=== PATIENT | female | born 1985 | race African-American/Black ===

== ENCOUNTER 2022-10-13 11:05 | Emergency (ER) | payer MEDICAID ==
[~2022-10-13] VITALS: Ht 177.8 cm; Wt 87.0 kg
[2022-10-13] MEDS ORDERED: FAMOTIDINE 20MG/2ML VIAL IV STA (15:17)
[2022-10-13] MEDS ORDERED: ONDANSETRON HCL 4MG/2ML INJ IV STA (15:17)
[2022-10-13] MEDS ORDERED: MORPHINE SULFATE 4 MG/ML CPJ (NOT FOR IM USE) IV STA (15:17)
[2022-10-13 15:21] LABS: BASOPHILS % 0.4 % (0.0-2.0); EOSINOPHILS % 0.4 % (0.0-5.0); HEMATOCRIT. 40.9 % (36.0-48.0); HEMOGLOBIN. 13.3 g/dL (12.0-16.0); LYMPHOCYTES % 32.5 % (20.0-50.0); MEAN CORPUSCULAR HEMOGLOBIN 24.8 pg (28.0-32.0); MEAN CORPUSCULAR VOLUME 76.4 fL (81.0-99.0); MEAN PLATELET VOLUME 9.5 fl (7.4-10.4); MONOCYTES % 13.5 % (2.0-8.0); NEUTROPHILS % 53.2 % (40.0-76.0); PLATELET 255 x1000/uL (130-400); RED BLOOD CELL COUNT 5.35 mill/uL (4.2-5.4); RED CELL DISTRIBUTION WIDTH 18.4 % (11.6-14.6)
[2022-10-13 15:23] LABS: CHLORIDE 98 mEq/L (98-107)
[2022-10-13] MEDS ORDERED: SODIUM CHLORIDE 0.9% 1,000 ML IV ONE (15:30)
[2022-10-13 15:32] LABS: ETHANOL BLOOD < 10 mg/dL
[2022-10-13] MEDS ORDERED: POTASSIUM CHLORIDE 20MEQ TABLET SR PO NR (15:45)
[2022-10-13 15:54] LABS: HCG SCREEN NEGATIVE
[2022-10-13 15:59] VITALS: BP 129/83
[2022-10-13 16:52] LABS: CLARITY URINE TURBID (CLEAR); COLOR URINE DARK YELLOW (YELLOW); KETONES URINE 1+ (NEGATIVE); LEUKOCYTE ESTERASE URINE 2+ (NEGATIVE); NITRITE URINE POSITIVE (NEGATIVE); OCCULT BLOOD URINE 3+ (NEGATIVE); PROTEIN URINE 3+ (NEGATIVE)
[2022-10-13] MEDS ORDERED: LEVOFLOXACIN 500MG PREMIX 100 ML IV ONE (17:00)
[2022-10-13 17:13] LABS: *BARBITURATES SCREEN URINE NEGATIVE (NEGATIVE); *BENZODIAZEPINES SCREEN URINE NEGATIVE (NEGATIVE); *COCAINE SCREEN URINE NEGATIVE (NEGATIVE); METHADONE URINE SCREEN NEGATIVE (NEGATIVE); OPIATES URINE SCREEN NEGATIVE (NEGATIVE); PHENCYCLIDINE URINE SCREEN NEGATIVE (NEGATIVE)
[2022-10-13 17:21] LABS: *AMPHETAMINES SCREEN URINE PRESUMTIVE POSITIVE (NEGATIVE); CANNABINOID URINE SCREEN PRESUMTIVE POSITIVE (NEGATIVE)
[2022-10-13] MEDS ORDERED: SULF1TAB48 MT (17:30)
[2022-10-13] MEDS ORDERED: ONDA4TAB50 MT (17:30)
[2022-10-13] MEDS ORDERED: IBUP-2028 MT (17:30)
== END 2022-10-13 18:45 | disposition home or self-care (01) ==
LOC: ER 11:05
DX: N12 Tubulo-interstitial nephritis, not specified as acute or chronic (principal); E87.6 Hypokalemia; F15.10 Other stimulant abuse, uncomplicated
CPT/HCPCS: 36415; 74176; 80053; 80305; 80320; 81003; 81025; 83690; 84703; 85025; 87077; 87086; 87186; 93005; 96361; 96365; 96375; 99285; J1956; J2270; J2405; J3490; J7030; G0480

== ENCOUNTER 2022-10-16 16:23 | Emergency (ER) | payer MEDICAID ==
[~2022-10-16] VITALS: Ht 175.3 cm; Wt 100.0 kg
[~2022-10-16 16:23] MED LIST: IBUP-2028 MT; ONDA4TAB50 MT; SULF1TAB48 MT
[2022-10-16] MEDS ORDERED: ONDANSETRON HCL 4MG/2ML INJ IM STA (16:49)
[2022-10-16] MEDS ORDERED: KETOROLAC 30MG/ML VIAL IM STA (16:49)
[2022-10-16 17:11] LABS: BASOPHILS % 0.5 % (0.0-2.0); EOSINOPHILS % 1.1 % (0.0-5.0); HEMOGLOBIN. 12.4 g/dL (12.0-16.0); LYMPHOCYTES % 40.8 % (20.0-50.0); MEAN CORPUSCULAR HEMOGLOBIN 24.7 pg (28.0-32.0); MEAN CORPUSCULAR VOLUME 75.8 fL (81.0-99.0); MONOCYTES % 7.6 % (2.0-8.0); PLATELET 275 x1000/uL (130-400); RED BLOOD CELL COUNT 5.01 mill/uL (4.2-5.4); RED CELL DISTRIBUTION WIDTH 17.3 % (11.6-14.6)
[2022-10-16 17:24] LABS: CHLORIDE 103 mEq/L (98-107)
[2022-10-16 17:49] VITALS: BP 149/97
[2022-10-16 17:50] LABS: CLARITY URINE CLOUDY (CLEAR); COLOR URINE DARK YELLOW (YELLOW); KETONES URINE 1+ (NEGATIVE); LEUKOCYTE ESTERASE URINE 3+ (NEGATIVE); NITRITE URINE NEGATIVE (NEGATIVE); OCCULT BLOOD URINE 1+ (NEGATIVE); PH URINE 6.5 (4.5-8.0); PROTEIN URINE 2+ (NEGATIVE); SPECIFIC GRAVITY URINE 1.029 (1.005-1.030)
[2022-10-16] MEDS ORDERED: CEFTRIAXONE SODIUM 1 G/VIAL IM NR (18:15)
[2022-10-16] MEDS ORDERED: LIDOCAINE HCL/PF 1% 10 MG/ML 5ML VIAL INFIL NR (18:15)
[2022-10-16] MEDS ORDERED: ONDA4TAB50 PO (18:22)
[2022-10-16] MEDS ORDERED: CIPR500T5 PO (18:22)
[2022-10-16] MEDS ORDERED: NAPR-681 PO (18:22)
[2022-10-21] MEDS ORDERED: ALBU6.7H3 INH (10:16)
== END 2022-10-16 18:55 | disposition home or self-care (01) ==
LOC: ER 16:23
DX: N10 Acute pyelonephritis (principal); F12.10 Cannabis abuse, uncomplicated; Z59.00 Homelessness unspecified; Z88.0 Allergy status to penicillin
CPT/HCPCS: 36415; 80053; 81003; 81025; 83690; 85025; 87086; 96372; 99284; J0696; J1885; J2405; J3490

== ENCOUNTER 2023-05-18 20:42 | Inpatient (IN) | payer MEDICAID ==
[~2023-05-18] VITALS: Ht 180.3 cm; Wt 59.0 kg
[~2023-05-18 20:42] MED LIST changes: +FOLI-43 MT; -IBUP-2028 MT; -ONDA4TAB50 MT; -SULF1TAB48 MT; +THIA50TA12 MT
[2023-05-18 20:44] VITALS: O2SAT 99
[2023-05-18 22:04] LABS: BASOPHILS % 0.3 % (0.0-2.0); EOSINOPHILS % 2.6 % (0.0-5.0); HEMATOCRIT. 22.6 % (36.0-48.0); HEMOGLOBIN. 7.1 g/dL (12.0-16.0); LYMPHOCYTES % 22.3 % (20.0-50.0); MEAN CORPUSCULAR HEMOGLOBIN 19.1 pg (28.0-32.0); MEAN CORPUSCULAR HGB CONC 31.3 g/dL (31.0-37.0); MEAN CORPUSCULAR VOLUME 61.2 fL (81.0-99.0); MEAN PLATELET VOLUME 7.4 fl (7.4-10.4); MONOCYTES % 6.9 % (2.0-8.0); NEUTROPHILS % 67.9 % (40.0-76.0); PLATELET 658 x1000/uL (130-400); RED BLOOD CELL COUNT 3.69 mill/uL (4.2-5.4); RED CELL DISTRIBUTION WIDTH 21.3 % (11.6-14.6); WHITE BLOOD COUNT 6.8 x1000/uL (4.5-11.0)
[2023-05-18 22:08] LABS: CHLORIDE 98 mEq/L (98-107); INDEX HEMOLYSI 1 (1-3); INDEX ICTERIC 1 (1-4); INDEX LIPEMIC 1 (1-3); POTASSIUM 3.8 mEq/L (3.5-5.1); SODIUM 137 mEq/L (136-145)
[2023-05-18 22:11] LABS: ADD RBC MORPHOLOGY YES; DIFFERENTIAL COMMENT 1
[2023-05-18 22:17] LABS: ALANINE AMINOTRANSFERASE 19 IU/L (13-61); ALBUMIN 2.9 g/dL (3.4-5.0); ASPARTATE AMINOTRANSFERASE 15 IU/L (15-37); BILIRUBIN TOTAL 0.2 mg/dL (0.1-1.0); CALCIUM 9.3 mg/dL (8.5-10.1); CARBON DIOXIDE 34 mEq/L (21-32); CREATININE 1.4 mg/dL (0.6-1.3); GLUCOSE 115 mg/dL (70-105); UREA NITROGEN BLOOD 12 mg/dL (7-21)
[2023-05-18 22:33] LABS: ANISOCYTOSIS 2+; HYPOCHROMASIA 2+; MICROCYTOSIS 3+; PLATELET ESTIMATE MARKEDLY INCREASED
[2023-05-18 22:34] LABS: OVALOCYTES 1+; TARGET CELLS 1+
[2023-05-18] MEDS ORDERED: MORPHINE SULFATE 4 MG/ML CPJ (NOT FOR IM USE) IV STA (23:29)
[2023-05-18] MEDS ORDERED: ONDANSETRON HCL 4MG/2ML INJ IV STA (23:29)
[2023-05-18] MEDS ORDERED: SODIUM CHLORIDE 0.9% 1,000 ML IV ONE (23:30)
[2023-05-19 00:14] LABS: HCG SCREEN NEGATIVE
[2023-05-19 00:20] LABS: CLARITY URINE TURBID (CLEAR); COLOR URINE YELLOW (YELLOW); GLUCOSE URINE NEGATIVE (NEGATIVE); KETONES URINE NEGATIVE (NEGATIVE); LEUKOCYTE ESTERASE URINE 2+ (NEGATIVE); NITRITE URINE NEGATIVE (NEGATIVE); OCCULT BLOOD URINE NEGATIVE (NEGATIVE); PROTEIN URINE 1+ (NEGATIVE); SPECIFIC GRAVITY URINE 1.016 (1.005-1.030); UROBILINOGEN URINE 0.2 E.U./dL (0.2-1.0)
[2023-05-19 00:38] LABS: *AMPHETAMINES SCREEN URINE NEGATIVE (NEGATIVE); *BARBITURATES SCREEN URINE NEGATIVE (NEGATIVE); *BENZODIAZEPINES SCREEN URINE NEGATIVE (NEGATIVE); *COCAINE SCREEN URINE NEGATIVE (NEGATIVE); ECSTASY MDMA SCREEN URINE NEGATIVE (NEGATIVE); METHADONE URINE SCREEN NEGATIVE (NEGATIVE); OPIATES URINE SCREEN NEGATIVE (NEGATIVE); PHENCYCLIDINE URINE SCREEN NEGATIVE (NEGATIVE)
[2023-05-19 00:41] LABS: CANNABINOID URINE SCREEN PRESUMTIVE POSITIVE (NEGATIVE)
[2023-05-19] MEDS ORDERED: LEVOFLOXACIN 750MG PREMIX 150 ML IV ONE (01:45)
[2023-05-19 05:20] VITALS: BP 122/75; PULSE 75; RESP 18; TEMP 97.7
[2023-05-19 05:38] LABS: SQUAMOUS EPITHELIAL CELL URINE 2+ /lpf (RARE/1+)
[2023-05-19 05:39] LABS: RBC URINE 0-2 /hpf (0-2)
[2023-05-19 05:45] LABS: BACTERIA URINE 1+
[2023-05-19 08:00] VITALS: BP 118/67; PULSE 78; RESP 18; TEMP 98.1
[2023-05-19] MEDS ORDERED: PNEUMOCOCCAL 23-VAL P-SAC VAC 0.5 ML IM ONE (09:00)
[2023-05-19] MEDS ORDERED: MORPHINE SULFATE 2 MG/ML CPJ (NOT FOR IM USE) IV PRN (09:45)
[2023-05-19] MEDS ORDERED: NALOXONE HCL 0.4MG/ML VIAL IV PRN ×2 (10:00→11:15)
[2023-05-19 12:00] VITALS: BP 138/70; PULSE 80; RESP 17; TEMP 97.5
[2023-05-19] MEDS ORDERED: DEXT 5%/0.9% NACL 1,000 ML IV SCH (13:00)
[2023-05-19 15:26] LABS: HEPATITIS B SURFACE ANTIGEN NEGATIVE
[2023-05-19 15:54] LABS: HEPATITIS C VIR.AB 0.16 INDEXVAL (0.00-0.80)
[2023-05-19 16:00] VITALS: BP 118/68; PULSE 78; RESP 18; TEMP 96.7
== END 2023-05-19 17:50 | disposition left against medical advice (07) | DRG 282 ==
LOC: ER 20:42 → MICUSO 05-19 01:54 → EDBEDREQ 05-19 01:59 → 6WST 05-19 05:30
PROVIDERS: ADMIT Internal Medicine; ATTEND Internal Medicine
PROC: 3E0234Z Introduction of Serum, Toxoid and Vaccine into Muscle, Percutaneous Approach (ICD-10-PCS; principal; 2023-05-19)
DX: K85.90 Acute pancreatitis without necrosis or infection, unspecified (principal); N17.9 Acute kidney failure, unspecified; F10.20 Alcohol dependence, uncomplicated; D50.8 Other iron deficiency anemias; D75.839 Thrombocytosis, unspecified; F12.10 Cannabis abuse, uncomplicated; F19.10 Other psychoactive substance abuse, uncomplicated; F31.9 Bipolar disorder, unspecified; Z59.00 Homelessness unspecified; J45.909 Unspecified asthma, uncomplicated; N39.0 Urinary tract infection, site not specified; Z90.49 Acquired absence of other specified parts of digestive tract
CPT/HCPCS: 36415; 71045; 74176; 80053; 80305; 81003; 84703; 85025; 86803; 87340; 90732; 93005; 99285; J1956; J2270; J2405; J7030

== ENCOUNTER 2023-07-02 09:30 | Emergency (ER) | payer MEDICAID ==
[~2023-07-02] VITALS: Ht 167.6 cm; Wt 52.0 kg
[~2023-07-02 09:30] MED LIST changes: +ONDA4TAB50 MT; +TOPUD MT
[2023-07-02 09:32] VITALS: O2SAT 100
[2023-07-02] MEDS ORDERED: ONDANSETRON HCL 4MG/2ML INJ IV STA (09:33)
[2023-07-02] MEDS ORDERED: MORPHINE SULFATE 4 MG/ML CPJ (NOT FOR IM USE) IV STA (09:33)
[2023-07-02] MEDS ORDERED: SODIUM CHLORIDE 0.9% 1,000 ML IV ONE (09:45)
[2023-07-02 10:44] LABS: BASOPHILS % 0.6 % (0.0-2.0); EOSINOPHILS % 0.7 % (0.0-5.0); HEMATOCRIT. 34.3 % (36.0-48.0); HEMOGLOBIN. 10.5 g/dL (12.0-16.0); LYMPHOCYTES % 16.8 % (20.0-50.0); MEAN CORPUSCULAR HEMOGLOBIN 21.6 pg (28.0-32.0); MEAN CORPUSCULAR HGB CONC 30.7 g/dL (31.0-37.0); MEAN CORPUSCULAR VOLUME 70.2 fL (81.0-99.0); MEAN PLATELET VOLUME 8.8 fl (7.4-10.4); MONOCYTES % 4.3 % (2.0-8.0); NEUTROPHILS % 77.6 % (40.0-76.0); PLATELET 377 x1000/uL (130-400); RED BLOOD CELL COUNT 4.89 mill/uL (4.2-5.4); RED CELL DISTRIBUTION WIDTH 26.8 % (11.6-14.6)
[2023-07-02 10:45] LABS: ADD RBC MORPHOLOGY YES; DIFFERENTIAL COMMENT 1
[2023-07-02 10:46] LABS: CLARITY URINE TURBID (CLEAR); COLOR URINE DARK YELLOW (YELLOW); GLUCOSE URINE NEGATIVE (NEGATIVE); KETONES URINE TRACE (NEGATIVE); LEUKOCYTE ESTERASE URINE NEGATIVE (NEGATIVE); NITRITE URINE NEGATIVE (NEGATIVE); OCCULT BLOOD URINE NEGATIVE (NEGATIVE); PH URINE 5.5 (4.5-8.0); PROTEIN URINE 1+ (NEGATIVE); SPECIFIC GRAVITY URINE 1.027 (1.005-1.030)
[2023-07-02 10:53] LABS: PROTHROMBIN TIME 10.5 sec (9.6-11.0)
[2023-07-02 10:58] LABS: CHLORIDE 105 mEq/L (98-107); INDEX HEMOLYSI 1 (1-3); INDEX ICTERIC 1 (1-4); INDEX LIPEMIC 1 (1-3); POTASSIUM 3.7 mEq/L (3.5-5.1); SODIUM 134 mEq/L (136-145)
[2023-07-02 11:05] LABS: ALANINE AMINOTRANSFERASE 22 IU/L (13-61); ALBUMIN 3.5 g/dL (3.4-5.0); ASPARTATE AMINOTRANSFERASE 16 IU/L (15-37); BILIRUBIN TOTAL 0.4 mg/dL (0.1-1.0); CALCIUM 9.3 mg/dL (8.5-10.1); CARBON DIOXIDE 28 mEq/L (21-32); CREATININE 0.7 mg/dL (0.6-1.3); ETHANOL BLOOD < 10 mg/dL (<10); GLUCOSE 96 mg/dL (70-105); PROTEIN TOTAL 8.5 g/dL (6.0-8.3); UREA NITROGEN BLOOD 8 mg/dL (7-21)
[2023-07-02 11:06] LABS: BACTERIA URINE 3+; SQUAMOUS EPITHELIAL CELL URINE 3+ /lpf (RARE/1+)
[2023-07-02 11:08] LABS: WBC URINE 0-2 /hpf (0-2)
[2023-07-02 11:09] LABS: RBC URINE NONE SEEN /hpf (0-2)
[2023-07-02 11:19] LABS: ANISOCYTOSIS 4+; PLATELET ESTIMATE NORMAL
[2023-07-02 11:20] LABS: HYPOCHROMASIA 1+; MICROCYTOSIS 2+
[2023-07-02 11:31] LABS: *BARBITURATES SCREEN URINE NEGATIVE (NEGATIVE); *BENZODIAZEPINES SCREEN URINE NEGATIVE (NEGATIVE); *COCAINE SCREEN URINE NEGATIVE (NEGATIVE); METHADONE URINE SCREEN NEGATIVE (NEGATIVE); OPIATES URINE SCREEN NEGATIVE (NEGATIVE); PHENCYCLIDINE URINE SCREEN NEGATIVE (NEGATIVE)
[2023-07-02 12:21] LABS: *AMPHETAMINES SCREEN URINE PRESUMTIVE POSITIVE (NEGATIVE); CANNABINOID URINE SCREEN PRESUMTIVE POSITIVE (NEGATIVE); ECSTASY MDMA SCREEN URINE CONF.TEST INDICATED (NEGATIVE)
[2023-07-02 12:49] VITALS: BP 119/94; PULSE 61; RESP 16; TEMP 97.6
== END 2023-07-02 12:51 | disposition home or self-care (01) ==
LOC: ER 09:30
DX: F15.10 Other stimulant abuse, uncomplicated (principal); F12.10 Cannabis abuse, uncomplicated; R10.9 Unspecified abdominal pain; F16.10 Hallucinogen abuse, uncomplicated; J45.909 Unspecified asthma, uncomplicated; Z88.0 Allergy status to penicillin; Z98.890 Other specified postprocedural states
CPT/HCPCS: 80053; 80305; 81003; 81025; 80320; 83605; 83690; 85025; 85610; 86850; 86900; 86901; 36415; 71045; 74176; 93005; 96361; 96374; 96375; 99285; J2405; J2270; J7030; Z7610 ×3; G0480

== ENCOUNTER 2023-10-13 17:06 | Emergency (ER) | payer MEDICAID ==
[~2023-10-13] VITALS: Ht 177.8 cm; Wt 73.0 kg
[2023-10-13 17:10] VITALS: O2SAT 97
[2023-10-13 20:47] LABS: BASOPHILS % 0.3 % (0.0-2.0); DIFFERENTIAL COMMENT 0; EOSINOPHILS % 1.1 % (0.0-5.0); HEMOGLOBIN. 10.5 g/dL (12.0-16.0); LYMPHOCYTES % 33.5 % (20.0-50.0); MEAN CORPUSCULAR HEMOGLOBIN 22.3 pg (28.0-32.0); MEAN CORPUSCULAR HGB CONC 30.8 g/dL (31.0-37.0); MEAN CORPUSCULAR VOLUME 72.4 fL (81.0-99.0); MEAN PLATELET VOLUME 8.4 fl (7.4-10.4); MONOCYTES % 10.7 % (2.0-8.0); NEUTROPHILS % 54.4 % (40.0-76.0); PLATELET 254 x1000/uL (130-400); WHITE BLOOD COUNT 4.3 x1000/uL (4.5-11.0)
[2023-10-13 21:05] LABS: ALANINE AMINOTRANSFERASE 14 IU/L (10-49); ALBUMIN 3.9 g/dL (3.2-4.8); ASPARTATE AMINOTRANSFERASE 24 IU/L (<34); BILIRUBIN TOTAL 0.3 mg/dL (0.1-1.0); CALCIUM 9.3 mg/dL (8.7-10.4); CARBON DIOXIDE 28 mEq/L (21-32); CHLORIDE 102 mEq/L (98-107); CREATININE 0.8 mg/dL (0.6-1.0); GLUCOSE 86 mg/dL (70-105); POTASSIUM 3.9 mEq/L (3.5-5.1); PROTEIN TOTAL 6.9 g/dL (6.0-8.3); SODIUM 138 mEq/L (136-145); UREA NITROGEN BLOOD 7 mg/dL (9-23)
[2023-10-13 21:07] LABS: HCG SCREEN NEGATIVE
[2023-10-13] MEDS ORDERED: KETOROLAC 30MG/ML VIAL IM ONE (23:30)
[2023-10-13] MEDS ORDERED: HALOPERIDOL LACTATE 5MG/ML VIAL IM ONE (23:30)
[2023-10-13] MEDS ORDERED: ONDANSETRON 4MG ODT PO STA (23:31)
[2023-10-13] MEDS ORDERED: MAGNESIUM/ALUMINUM HYDROXIDE/SIMETHICONE 30ML UDC PO STA (23:31)
[2023-10-13] MEDS ORDERED: DICYCLOMINE 10 MG/5 ML ORAL SYR PO STA (23:31)
[2023-10-14] MEDS ORDERED: FAMO-135 MT (00:18)
[2023-10-14 00:56] VITALS: BP 156/84; PULSE 60; RESP 18; TEMP 98.3
== END 2023-10-14 01:06 | disposition home or self-care (01) ==
LOC: ER 17:06
DX: K29.70 Gastritis, unspecified, without bleeding (principal); R11.10 Vomiting, unspecified; J45.909 Unspecified asthma, uncomplicated; I10 Essential (primary) hypertension; D64.9 Anemia, unspecified; F12.90 Cannabis use, unspecified, uncomplicated; F15.90 Other stimulant use, unspecified, uncomplicated
CPT/HCPCS: 99284; 80053; 84703; 83690; 85025; 36415; 96372; Q0162; J1630; J1885

== ENCOUNTER 2023-10-16 09:06 | Emergency (ER) | payer MEDICAID ==
[~2023-10-16] VITALS: Ht 160 cm; Wt 70.0 kg
[~2023-10-16 09:06] MED LIST changes: +FAMO-135 MT
[2023-10-16 09:09] VITALS: TEMP 98.5; O2SAT 100
[2023-10-16] MEDS ORDERED: DICYCLOMINE 10 MG/5 ML ORAL SYR PO STA (09:17)
[2023-10-16] MEDS ORDERED: MAGNESIUM/ALUMINUM HYDROXIDE/SIMETHICONE 30ML UDC PO STA (09:17)
[2023-10-16] MEDS ORDERED: FAMOTIDINE 20MG TABLET PO ONE (09:30)
[2023-10-16 09:48] LABS: BASOPHILS % 0.7 % (0.0-2.0); DIFFERENTIAL COMMENT 0; EOSINOPHILS % 0.5 % (0.0-5.0); HEMATOCRIT. 38.3 % (36.0-48.0); HEMOGLOBIN. 11.8 g/dL (12.0-16.0); LYMPHOCYTES % 28.4 % (20.0-50.0); MEAN CORPUSCULAR HEMOGLOBIN 22.3 pg (28.0-32.0); MEAN CORPUSCULAR HGB CONC 30.8 g/dL (31.0-37.0); MEAN CORPUSCULAR VOLUME 72.5 fL (81.0-99.0); MEAN PLATELET VOLUME 8.8 fl (7.4-10.4); MONOCYTES % 7.5 % (2.0-8.0); NEUTROPHILS % 62.9 % (40.0-76.0); PLATELET 318 x1000/uL (130-400); RED BLOOD CELL COUNT 5.28 mill/uL (4.2-5.4); RED CELL DISTRIBUTION WIDTH 19.2 % (11.6-14.6); WHITE BLOOD COUNT 4.1 x1000/uL (4.5-11.0)
[2023-10-16 10:03] LABS: ALANINE AMINOTRANSFERASE 13 IU/L (10-49); ALBUMIN 3.8 g/dL (3.2-4.8); ASPARTATE AMINOTRANSFERASE 17 IU/L (<34); BILIRUBIN TOTAL 0.4 mg/dL (0.1-1.0); CARBON DIOXIDE 26 mEq/L (21-32); CHLORIDE 102 mEq/L (98-107); CREATININE 0.9 mg/dL (0.6-1.0); GLUCOSE 120 mg/dL (70-105); POTASSIUM 4.4 mEq/L (3.5-5.1); PROTEIN TOTAL 7.8 g/dL (6.0-8.3); SODIUM 134 mEq/L (136-145); UREA NITROGEN BLOOD 11 mg/dL (9-23)
[2023-10-16 10:04] LABS: ETHANOL BLOOD < 10 mg/dL (<10)
[2023-10-16] MEDS ORDERED: KETOROLAC 30MG/ML VIAL IV STA (11:04)
[2023-10-16] MEDS ORDERED: HALOPERIDOL LACTATE 5MG/ML VIAL IM ONE (11:15)
[2023-10-16] MEDS ORDERED: KETOROLAC 30MG/ML VIAL IV NR (12:15)
[2023-10-16] MEDS ORDERED: HALOPERIDOL LACTATE 5MG/ML VIAL IM NR (12:15)
[2023-10-16] MEDS ORDERED: MAGNESIUM/ALUMINUM HYDROXIDE/SIMETHICONE 30ML UDC PO NR (12:15)
[2023-10-16] MEDS ORDERED: FAMOTIDINE 20MG TABLET PO NR (12:15)
[2023-10-16 12:26] VITALS: BP 157/76; PULSE 78; RESP 16
[2023-10-16 13:51] LABS: HCG SCREEN NEGATIVE
== END 2023-10-16 14:18 | disposition home or self-care (01) ==
LOC: ER 09:06
DX: R11.10 Vomiting, unspecified (principal); F12.10 Cannabis abuse, uncomplicated; F15.10 Other stimulant abuse, uncomplicated; I10 Essential (primary) hypertension; J45.909 Unspecified asthma, uncomplicated; Z88.0 Allergy status to penicillin; Z98.890 Other specified postprocedural states
CPT/HCPCS: 80053; 80320; 84703; 83690; 85025; 36415; 96372; 96374; 99283; J1630; J1885; G0480

== ENCOUNTER 2023-10-21 13:18 | Emergency (ER) | payer MEDICAID ==
[~2023-10-21] VITALS: Ht 177.8 cm; Wt 61.0 kg
[2023-10-21 13:34] VITALS: BP 158/90; PULSE 90; RESP 18; O2SAT 96
[2023-10-21] MEDS ORDERED: ONDANSETRON 4MG ODT PO NR (15:49)
[2023-10-21] MEDS ORDERED: MAGNESIUM/ALUMINUM HYDROXIDE/SIMETHICONE 30ML UDC PO NR (15:49)
[2023-10-21] MEDS ORDERED: ONDANSETRON 4MG ODT PO STA (15:49)
[2023-10-21] MEDS ORDERED: DICYCLOMINE 10 MG/5 ML ORAL SYR PO STA (15:49)
[2023-10-21] MEDS ORDERED: DICYCLOMINE HCL 10MG CAPSULE PO NR (15:49)
[2023-10-21] MEDS ORDERED: MAGNESIUM/ALUMINUM HYDROXIDE/SIMETHICONE 30ML UDC PO STA (15:49)
[2023-10-21] MEDS ORDERED: HALOPERIDOL LACTATE 5MG/ML VIAL IM ONE (16:00)
[2023-10-21] MEDS ORDERED: HALOPERIDOL LACTATE 5MG/ML VIAL IM NR (16:00)
[2023-10-21 16:40] LABS: BASOPHILS % 0.7 % (0.0-2.0); DIFFERENTIAL COMMENT 0; EOSINOPHILS % 0.7 % (0.0-5.0); HEMATOCRIT. 35.5 % (36.0-48.0); HEMOGLOBIN. 11.2 g/dL (12.0-16.0); LYMPHOCYTES % 24.8 % (20.0-50.0); MEAN CORPUSCULAR HGB CONC 31.6 g/dL (31.0-37.0); MEAN CORPUSCULAR VOLUME 72.6 fL (81.0-99.0); MONOCYTES % 7.1 % (2.0-8.0); NEUTROPHILS % 66.7 % (40.0-76.0); PLATELET 392 x1000/uL (130-400); RED BLOOD CELL COUNT 4.89 mill/uL (4.2-5.4); RED CELL DISTRIBUTION WIDTH 19.5 % (11.6-14.6); WHITE BLOOD COUNT 4.4 x1000/uL (4.5-11.0)
[2023-10-21 16:58] LABS: ALANINE AMINOTRANSFERASE 11 IU/L (10-49); ALBUMIN 4.1 g/dL (3.2-4.8); ASPARTATE AMINOTRANSFERASE 18 IU/L (<34); BILIRUBIN TOTAL 0.4 mg/dL (0.1-1.0); CALCIUM 9.8 mg/dL (8.7-10.4); CARBON DIOXIDE 31 mEq/L (21-32); CHLORIDE 102 mEq/L (98-107); CREATININE 0.9 mg/dL (0.6-1.0); GLUCOSE 108 mg/dL (70-105); POTASSIUM 4.5 mEq/L (3.5-5.1); PROTEIN TOTAL 8.3 g/dL (6.0-8.3); SODIUM 137 mEq/L (136-145); UREA NITROGEN BLOOD 12 mg/dL (9-23)
[2023-10-21 17:02] LABS: ETHANOL BLOOD < 10 mg/dL (<10)
[2023-10-21 18:24] VITALS: TEMP 97.2
[2023-10-21] MEDS ORDERED: ACETAMINOPHEN 325MG TABLET PO STA (18:24)
[2023-10-21] MEDS ORDERED: ACETAMINOPHEN 325MG TABLET PO NR (18:24)
[2023-10-21 21:44] LABS: *AMPHETAMINES SCREEN URINE NEGATIVE (NEGATIVE); *BARBITURATES SCREEN URINE NEGATIVE (NEGATIVE); *BENZODIAZEPINES SCREEN URINE NEGATIVE (NEGATIVE); *COCAINE SCREEN URINE NEGATIVE (NEGATIVE); ECSTASY MDMA SCREEN URINE NEGATIVE (NEGATIVE); METHADONE URINE SCREEN Neg (NEGATIVE); OPIATES URINE SCREEN NEGATIVE (NEGATIVE); PHENCYCLIDINE URINE SCREEN NEGATIVE (NEGATIVE)
[2023-10-21] MEDS ORDERED: ACET-2708 MT (22:34)
== END 2023-10-22 00:04 | disposition home or self-care (01) ==
LOC: ER 13:55
DX: G89.29 Other chronic pain (principal); R10.9 Unspecified abdominal pain; F15.10 Other stimulant abuse, uncomplicated; F12.90 Cannabis use, unspecified, uncomplicated; J45.909 Unspecified asthma, uncomplicated; I10 Essential (primary) hypertension; D64.9 Anemia, unspecified; Z88.0 Allergy status to penicillin
CPT/HCPCS: 80053; 80305; 80320; 83690; 85025; 36415; 71045; 99284; Q0162; G0480

== ENCOUNTER 2024-06-15 19:43 | Emergency (ER) | payer MEDICAID ==
[~2024-06-15] VITALS: Ht 175.3 cm; Wt 68.0 kg
[~2024-06-15 19:43] MED LIST changes: +ACET-2708 MT; -FAMO-135 MT; +FAMO20TA8 MT; -ONDA4TAB50 MT; +SUCR1TAB MT
[2024-06-15 19:55] VITALS: O2SAT 98
[2024-06-15] MEDS: ACETAMINOPHEN 1000MG/100ML 100 ML IV ONE (21:35)
[2024-06-15] MEDS: FAMOTIDINE 20MG/2ML VIAL IV ONE (21:35)
[2024-06-15] MEDS: SODIUM CHLORIDE 0.9% 1,000 ML IV ONE (21:35)
[2024-06-15] MEDS: ONDANSETRON HCL 4MG/2ML INJ IV ONE (21:35)
[2024-06-15] MEDS: DICYCLOMINE HCL 10MG/ML 2ML VIAL IM ONE (21:35)
[2024-06-15 21:42] LABS: BASOPHILS % 0.4 % (0.0-2.0); DIFFERENTIAL COMMENT 0; EOSINOPHILS % 0.9 % (0.0-5.0); HEMATOCRIT. 39.2 % (36.0-48.0); HEMOGLOBIN. 12.3 g/dL (12.0-16.0); LYMPHOCYTES % 35.6 % (20.0-50.0); MEAN CORPUSCULAR HEMOGLOBIN 25.1 pg (28.0-32.0); MEAN CORPUSCULAR HGB CONC 31.5 g/dL (31.0-37.0); MEAN CORPUSCULAR VOLUME 79.6 fL (81.0-99.0); MEAN PLATELET VOLUME 8.4 fl (7.4-10.4); MONOCYTES % 5.8 % (2.0-8.0); NEUTROPHILS % 57.3 % (40.0-76.0); PLATELET 306 x1000/uL (130-400); RED BLOOD CELL COUNT 4.92 mill/uL (4.2-5.4); RED CELL DISTRIBUTION WIDTH 18.2 % (11.6-14.6); WHITE BLOOD COUNT 3.3 x1000/uL (4.5-11.0)
[2024-06-15 21:47] LABS: CHLORIDE 101 mEq/L (98-107); POTASSIUM 3.8 mEq/L (3.5-5.1); SODIUM 136 mEq/L (136-145)
[2024-06-15 21:48] LABS: CALCIUM 9.6 mg/dL (8.7-10.4); CARBON DIOXIDE 31 mEq/L (21-32)
[2024-06-15 21:50] LABS: HCG SCREEN NEGATIVE
[2024-06-15 21:53] LABS: CREATININE 1.2 mg/dL (0.6-1.0); GLUCOSE 102 mg/dL (70-105); UREA NITROGEN BLOOD 12 mg/dL (9-23)
[2024-06-15 21:54] LABS: TROPONIN I HIGH SENSITIVITY 5 ng/L (3.0-34)
[2024-06-15 21:55] LABS: ALANINE AMINOTRANSFERASE 17 IU/L (10-49); ALBUMIN 4.4 g/dL (3.2-4.8); ASPARTATE AMINOTRANSFERASE 22 IU/L (<34); BILIRUBIN TOTAL 0.3 mg/dL (0.1-1.0)
[2024-06-15 21:56] LABS: BILIRUBIN DIRECT < 0.1 mg/dL (<=3.0); PROTEIN TOTAL 7.9 g/dL (6.0-8.3)
[2024-06-15] MEDS ORDERED: FAMO20TA8 MT (22:23)
[2024-06-15] MEDS ORDERED: ONDA4TAB50 MT (22:30)
[2024-06-15 22:59] VITALS: TEMP 36.78072
[2024-06-15 23:55] VITALS: O2SAT 99
[2024-06-15 23:56] VITALS: BP 179/99; PULSE 63; RESP 16
[2024-06-15] MEDS: MORPHINE SULFATE 2 MG/ML INJ (NOT FOR IM USE) IV NR (23:56)
== END 2024-06-16 00:37 | disposition home or self-care (01) ==
LOC: ER 19:43
DX: R11.2 Nausea with vomiting, unspecified (principal); F15.10 Other stimulant abuse, uncomplicated; F12.10 Cannabis abuse, uncomplicated; I10 Essential (primary) hypertension; J45.909 Unspecified asthma, uncomplicated; Z88.0 Allergy status to penicillin; Z98.890 Other specified postprocedural states
CPT/HCPCS: 80076; 80048; 84703; 83690; 85025; 84484; 36415; 96365; 96366; 96372; 96375; 99284; J0500; J3490; J2405; J2270; J7030; Z7610 ×3; J0131

== ENCOUNTER 2024-12-11 13:01 | Emergency (ER) | payer MEDICAID, OTHER ==
[~2024-12-11] VITALS: Ht 162.6 cm; Wt 50.0 kg
[~2024-12-11 13:01] MED LIST changes: +FERR325T6 MT; +ONDA4TAB50 MT; +PANT40TA51 MT
[2024-12-11 13:02] VITALS: O2SAT 99
[2024-12-11 13:56] LABS: BASOPHILS % 0.5 % (0.0-2.0); DIFFERENTIAL COMMENT 0; EOSINOPHILS % 0.4 % (0.0-5.0); HEMATOCRIT. 32.1 % (36.0-48.0); HEMOGLOBIN. 10.3 g/dL (12.0-16.0); LYMPHOCYTES % 17.2 % (20.0-50.0); MEAN CORPUSCULAR HEMOGLOBIN 24.5 pg (28.0-32.0); MEAN CORPUSCULAR HGB CONC 31.9 g/dL (31.0-37.0); MEAN CORPUSCULAR VOLUME 76.7 fL (81.0-99.0); MEAN PLATELET VOLUME 8.3 fl (7.4-10.4); MONOCYTES % 2.7 % (2.0-8.0); NEUTROPHILS % 79.2 % (40.0-76.0); PLATELET 569 x1000/uL (130-400); RED BLOOD CELL COUNT 4.19 mill/uL (4.2-5.4); RED CELL DISTRIBUTION WIDTH 17.1 % (11.6-14.6); WHITE BLOOD COUNT 6.6 x1000/uL (4.5-11.0)
[2024-12-11] MEDS: ONDANSETRON 4MG ODT PO STA (13:58)
[2024-12-11] MEDS: ACETAMINOPHEN 325MG TABLET PO STA (13:58)
[2024-12-11 14:00] LABS: CARBON DIOXIDE 30 mEq/L (21-32); CHLORIDE 96 mEq/L (98-107); SODIUM 138 mEq/L (136-145)
[2024-12-11 14:01] LABS: CALCIUM 10.5 mg/dL (8.7-10.4)
[2024-12-11 14:06] LABS: CREATININE 1.3 mg/dL (0.6-1.0); GLUCOSE 119 mg/dL (70-105); UREA NITROGEN BLOOD 22 mg/dL (9-23)
[2024-12-11 14:07] LABS: ALANINE AMINOTRANSFERASE 9 IU/L (10-49); ALBUMIN 4.9 g/dL (3.2-4.8); ASPARTATE AMINOTRANSFERASE 17 IU/L (<34)
[2024-12-11 14:08] LABS: BILIRUBIN TOTAL < 0.2 mg/dL (0.1-1.0); ETHANOL BLOOD < 10 mg/dL (<10)
[2024-12-11 14:13] LABS: HCG SCREEN NEGATIVE
[2024-12-11 14:27] LABS: PROTEIN TOTAL 10.2 g/dL (6.0-8.3)
[2024-12-11 14:38] LABS: BILIRUBIN DIRECT < 0.1 mg/dL (<=3.0)
[2024-12-11 17:38] VITALS: BP 146/91; PULSE 90; RESP 16; TEMP 36.6; O2SAT 99
[2024-12-17] MEDS ORDERED: QUET100T PO (14:23)
[2024-12-29] MEDS ORDERED: HYDR25TA78 MT (15:41)
[2024-12-29] MEDS ORDERED: FERR-71 MT (15:41)
[2024-12-29] MEDS ORDERED: DOCU-138 MT (15:41)
[2024-12-29] MEDS ORDERED: SUCR1TAB30 MT (15:41)
[2024-12-29] MEDS ORDERED: PROT40 MT (15:41)
[2024-12-29] MEDS ORDERED: ASCO-339 MT (15:41)
[2025-01-03] MEDS ORDERED: LEVO-65 MT (14:40)
[2025-01-03] MEDS ORDERED: NICO-789 TD (14:40)
[2025-01-03] MEDS ORDERED: PROT40 MT (14:40)
[2025-01-03] MEDS ORDERED: ONDA4TAB50 MT (14:40)
[2025-01-03] MEDS ORDERED: SUCR1TAB PO (14:40)
[2025-01-03] MEDS ORDERED: HYDR25TA78 MT (14:40)
[2025-01-03] MEDS ORDERED: TOPUD PO (14:40)
[2025-01-03] MEDS ORDERED: THIA100T72 PO (14:40)
[2025-01-03] MEDS ORDERED: FOLI-43 PO (14:40)
[2025-01-24] MEDS ORDERED: FLUT1DIS3 INH (13:17)
[2025-01-24] MEDS ORDERED: ALBU18HF2 IH (13:17)
[2025-01-24] MEDS ORDERED: P20 MT (13:17)
[2025-01-24] MEDS ORDERED: HYDR50TA39 PO (13:18)
[2025-01-24] MEDS ORDERED: AMLO10TA80 MT (13:18)
[2025-01-24] MEDS ORDERED: LEVE1000 MT (13:19)
[2025-01-25] MEDS ORDERED: IPRA3AMP9 NEB (10:35)
== END 2024-12-11 17:40 | disposition home or self-care (01) ==
LOC: ER 13:01
DX: R10.815 Periumbilic abdominal tenderness (principal); F12.90 Cannabis use, unspecified, uncomplicated; J45.909 Unspecified asthma, uncomplicated; F31.9 Bipolar disorder, unspecified; F20.9 Schizophrenia, unspecified; D57.1 Sickle-cell disease without crisis; Z90.49 Acquired absence of other specified parts of digestive tract; Z79.899 Other long term (current) drug therapy; Z88.0 Allergy status to penicillin
CPT/HCPCS: 80076; 80048; 80320; 84703; 83690; 85025; 36415; 74177; 99285; Q9967; Q0162; G0480

== ENCOUNTER 2025-01-07 13:53 | Emergency (ER) | payer OTHER ==
[~2025-01-07] VITALS: Ht 167.6 cm; Wt 51.0 kg
[~2025-01-07 13:53] MED LIST changes: -ACET-2708 MT; +ASCO-339 MT; +DOCU-138 MT; -FAMO20TA8 MT; -FOLI-43 MT; +FOLI-43 PO; +HYDR25TA78 MT; +LEVO-65 MT; +NICO-789 TD; -PANT40TA51 MT; +PROT40 MT; +QUET100T PO; -SUCR1TAB MT; +SUCR1TAB PO; +THIA100T72 PO; -THIA50TA12 MT; -TOPUD MT; +TOPUD PO
[2025-01-07 14:41] VITALS: O2SAT 100
[2025-01-07 15:30] LABS: BASOPHILS % 0.5 % (0.0-2.0); EOSINOPHILS % 0.6 % (0.0-5.0); HEMATOCRIT. 30.7 % (36.0-48.0); HEMOGLOBIN. 9.5 g/dL (12.0-16.0); MEAN CORPUSCULAR HEMOGLOBIN 25.6 pg (28.0-32.0); MEAN CORPUSCULAR HGB CONC 31.1 g/dL (31.0-37.0); MEAN CORPUSCULAR VOLUME 82.3 fL (81.0-99.0); MEAN PLATELET VOLUME 7.3 fl (7.4-10.4); MONOCYTES % 6.3 % (2.0-8.0); NEUTROPHILS % 75.6 % (40.0-76.0); PLATELET 656 x1000/uL (130-400); RED BLOOD CELL COUNT 3.73 mill/uL (4.2-5.4); WHITE BLOOD COUNT 8.6 x1000/uL (4.5-11.0)
[2025-01-07 15:31] LABS: CHLORIDE 99 mEq/L (98-107); POTASSIUM 4.5 mEq/L (3.5-5.1); SODIUM 137 mEq/L (136-145)
[2025-01-07 15:32] LABS: CALCIUM 10.1 mg/dL (8.7-10.4); CARBON DIOXIDE 30 mEq/L (21-32)
[2025-01-07 15:37] LABS: CREATININE 0.9 mg/dL (0.6-1.0); GLUCOSE 106 mg/dL (70-105); UREA NITROGEN BLOOD 8 mg/dL (9-23)
[2025-01-07 15:40] LABS: TROPONIN I HIGH SENSITIVITY < 4 ng/L (3.0-34)
[2025-01-07] MEDS: ONDANSETRON HCL 4MG/2ML INJ IV STA (15:40)
[2025-01-07] MEDS: SUCRALFATE 1G TABLET PO STA (15:40)
[2025-01-07] MEDS: MORPHINE SULFATE 4 MG/ML INJ (FOR IV/IM USE) IV ONE (15:40)
[2025-01-07] MEDS: PANTOPRAZOLE SODIUM 40 MG/VIAL IV ONE (15:41)
[2025-01-07] MEDS: SODIUM CHLORIDE 0.9% 1,000 ML IV ONE (15:41)
[2025-01-07 15:53] LABS: INR 1.1; PROTHROMBIN TIME 11.5 sec (9.6-11.0)
[2025-01-07 15:54] LABS: HCG SCREEN NEGATIVE
[2025-01-07 15:59] LABS: ALANINE AMINOTRANSFERASE 9 IU/L (10-49); ALBUMIN 3.7 g/dL (3.2-4.8); ASPARTATE AMINOTRANSFERASE 12 IU/L (<34); BILIRUBIN TOTAL 0.3 mg/dL (0.1-1.0); PROTEIN TOTAL 8.6 g/dL (6.0-8.3)
[2025-01-07 16:06] VITALS: BP 135/93; PULSE 107; RESP 18; TEMP 36.4; O2SAT 100
[2025-01-07 16:20] LABS: BILIRUBIN DIRECT < 0.1 mg/dL (<=3.0); ETHANOL BLOOD < 10 mg/dL (<10)
[2025-01-07] MEDS ORDERED: FOLI-43 PO (16:54)
[2025-01-07] MEDS ORDERED: ASCO-339 MT (16:54)
[2025-01-07] MEDS ORDERED: PROT40 MT (16:54)
[2025-01-07] MEDS ORDERED: THIA100T72 PO (16:54)
[2025-01-07] MEDS ORDERED: SUCR1TAB PO (16:54)
[2025-01-07] MEDS ORDERED: FERR325T6 MT (16:54)
[2025-01-07] MEDS ORDERED: HYDR-4001 MT (16:55)
== END 2025-01-07 19:48 | disposition home or self-care (01) ==
LOC: ER 13:53
DX: K29.50 Unspecified chronic gastritis without bleeding (principal); D64.9 Anemia, unspecified; F17.200 Nicotine dependence, unspecified, uncomplicated; F20.9 Schizophrenia, unspecified; F31.9 Bipolar disorder, unspecified; J45.909 Unspecified asthma, uncomplicated; D57.1 Sickle-cell disease without crisis; Z98.890 Other specified postprocedural states; Z79.899 Other long term (current) drug therapy; Z88.0 Allergy status to penicillin; Z88.1 Allergy status to other antibiotic agents
CPT/HCPCS: 80076; 80048; 80320; 82962; 84703; 83690; 85025; 85610; 84484; 36415; 71045; 93005; 96374; 96375; 99285; J2405; J2470; J2270; J7030; G0480

== ENCOUNTER 2025-01-10 10:48 | Emergency (ER) | payer OTHER, MEDICAID ==
[~2025-01-10] VITALS: Ht 180.3 cm; Wt 68.0 kg
[~2025-01-10 10:48] MED LIST changes: +HYDR-4001 MT
[2025-01-10 11:01] VITALS: O2SAT 93
[2025-01-10 11:57] LABS: BASOPHILS % 0.7 % (0.0-2.0); EOSINOPHILS % 1.2 % (0.0-5.0); HEMATOCRIT. 28.4 % (36.0-48.0); HEMOGLOBIN. 9.1 g/dL (12.0-16.0); LYMPHOCYTES % 19.3 % (20.0-50.0); MEAN CORPUSCULAR HEMOGLOBIN 25.8 pg (28.0-32.0); MEAN CORPUSCULAR VOLUME 80.6 fL (81.0-99.0); MEAN PLATELET VOLUME 7.2 fl (7.4-10.4); MONOCYTES % 3.8 % (2.0-8.0); PLATELET 600 x1000/uL (130-400); RED BLOOD CELL COUNT 3.52 mill/uL (4.2-5.4); RED CELL DISTRIBUTION WIDTH 19.8 % (11.6-14.6); WHITE BLOOD COUNT 7.3 x1000/uL (4.5-11.0)
[2025-01-10 12:08] LABS: CHLORIDE 100 mEq/L (98-107); POTASSIUM 4.1 mEq/L (3.5-5.1); SODIUM 140 mEq/L (136-145)
[2025-01-10 12:09] LABS: CALCIUM 9.7 mg/dL (8.7-10.4); CARBON DIOXIDE 36 mEq/L (21-32)
[2025-01-10 12:14] LABS: CREATININE 0.8 mg/dL (0.6-1.0); GLUCOSE 118 mg/dL (70-105); UREA NITROGEN BLOOD 11 mg/dL (9-23)
[2025-01-10 12:18] VITALS: TEMP 37.2
[2025-01-10] MEDS: METHYLPREDNISOLONE SOD SUCC 125MG/2ML (ACT-O-VIAL) IV STA (12:18)
[2025-01-10 12:40] VITALS: RESP 22
[2025-01-10] MEDS: IPRATROPIUM BROMIDE (0.02%) 0.5MG/2.5ML NEB HHN STA (12:58)
[2025-01-10] MEDS: ALBUTEROL (0.083%) 2.5MG/3ML NEB HHN SCH (12:59)
[2025-01-10] MEDS: DICYCLOMINE 10 MG/5 ML ORAL SYR PO STA (13:02)
[2025-01-10] MEDS: FAMOTIDINE 20MG/2ML VIAL IV STA (13:02)
[2025-01-10 13:03] VITALS: RESP 26
[2025-01-10] MEDS ORDERED: KETOROLAC 30MG/ML VIAL IV ONE (13:15)
[2025-01-10] MEDS: ONDANSETRON HCL 4MG/2ML INJ IV ONE (13:57)
[2025-01-10] MEDS: HYDROCODONE/ACETAMINOPHEN 5/325MG TABLET PO ONE (13:57)
[2025-01-10] MEDS: MAGNESIUM/ALUMINUM HYDROXIDE/SIMETHICONE 30ML UDC PO STA (13:57)
[2025-01-10] MEDS ORDERED: P50 MT (14:22)
[2025-01-10] MEDS ORDERED: PROT40 MT (14:22)
[2025-01-10] MEDS ORDERED: ALBU18HF2 IH (14:23)
[2025-01-10 14:42] VITALS: BP 149/98; PULSE 84; RESP 16; O2SAT 99
[2025-01-10 15:06] LABS: HCG SCREEN NEGATIVE
[2025-01-10 15:10] LABS: ALANINE AMINOTRANSFERASE 8 IU/L (10-49); ALBUMIN 3.9 g/dL (3.2-4.8); ASPARTATE AMINOTRANSFERASE 18 IU/L (<34); BILIRUBIN TOTAL 0.2 mg/dL (0.1-1.0); PROTEIN TOTAL 8.8 g/dL (6.0-8.3)
[2025-01-10 15:18] LABS: BILIRUBIN DIRECT < 0.1 mg/dL (<=3.0)
== END 2025-01-10 15:43 | disposition home or self-care (01) ==
LOC: ER 10:48
DX: J45.901 Unspecified asthma with (acute) exacerbation (principal); K29.50 Unspecified chronic gastritis without bleeding; F31.9 Bipolar disorder, unspecified; F17.200 Nicotine dependence, unspecified, uncomplicated; F20.9 Schizophrenia, unspecified; Z79.899 Other long term (current) drug therapy; Z98.890 Other specified postprocedural states; Z88.0 Allergy status to penicillin; Z88.1 Allergy status to other antibiotic agents
CPT/HCPCS: 80076; 80048; 84703; 85025; 36415; 71045; 93005; 96374; 96375; 99285; J3490; J2919; J2405; Z7610 ×2; A4606

== ENCOUNTER 2025-02-11 18:53 | Inpatient (IN) | payer MEDICAID, OTHER ==
[~2025-02-11] VITALS: Ht 154.9 cm; Wt 63.1 kg
[~2025-02-11 18:53] MED LIST changes: +ALBU18HF2 IH; +AMLO10TA80 MT; +FLUT1DIS3 INH; +HYDR50TA39 PO; +IPRA3AMP9 NEB; +LEVE1000 MT; -LEVO-65 MT; +P20 MT
[2025-02-11 20:10] LABS: BASOPHILS % 0.3 % (0.0-2.0); DIFFERENTIAL COMMENT 0; LYMPHOCYTES % 24.2 % (20.0-50.0); MEAN CORPUSCULAR HEMOGLOBIN 24.5 pg (28.0-32.0); MEAN CORPUSCULAR HGB CONC 31.5 g/dL (31.0-37.0); MEAN CORPUSCULAR VOLUME 77.9 fL (81.0-99.0); MEAN PLATELET VOLUME 7.5 fl (7.4-10.4); MONOCYTES % 2.8 % (2.0-8.0); NEUTROPHILS % 71.7 % (40.0-76.0); PLATELET 435 x1000/uL (130-400); RED BLOOD CELL COUNT 2.69 mill/uL (4.2-5.4); RED CELL DISTRIBUTION WIDTH 19.7 % (11.6-14.6); WHITE BLOOD COUNT 8.7 x1000/uL (4.5-11.0)
[2025-02-11 20:16] LABS: CHLORIDE 102 mEq/L (98-107); POTASSIUM 3.3 mEq/L (3.5-5.1); SODIUM 140 mEq/L (136-145)
[2025-02-11 20:17] LABS: HEMOGLOBIN. 6.6 g/dL (12.0-16.0)
[2025-02-11 20:18] LABS: CALCIUM 8.5 mg/dL (8.7-10.4); CARBON DIOXIDE 32 mEq/L (21-32)
[2025-02-11 20:23] LABS: CREATININE 0.7 mg/dL (0.6-1.0); ETHANOL BLOOD < 10 mg/dL (<10); GLUCOSE 102 mg/dL (70-105); UREA NITROGEN BLOOD 39 mg/dL (9-23)
[2025-02-11 20:24] LABS: ALANINE AMINOTRANSFERASE 16 IU/L (10-49); ASPARTATE AMINOTRANSFERASE 17 IU/L (<34); HCG SCREEN NEGATIVE
[2025-02-11 20:25] LABS: ALBUMIN 3.3 g/dL (3.2-4.8); BILIRUBIN DIRECT < 0.1 mg/dL (<=3.0); BILIRUBIN TOTAL 0.2 mg/dL (0.1-1.0); PROTEIN TOTAL 6.2 g/dL (6.0-8.3)
[2025-02-11] MEDS: MORPHINE SULFATE 4 MG/ML INJ (FOR IV/IM USE) IV STA (20:41)
[2025-02-11] MEDS: ONDANSETRON HCL 4MG/2ML INJ IV STA (20:41)
[2025-02-11] MEDS: FAMOTIDINE 20MG/2ML VIAL IV STA (20:41)
[2025-02-11] MEDS: SODIUM CHLORIDE 0.9% 1,000 ML IV ONE (20:42)
[2025-02-11 23:40] LABS: CLARITY URINE CLEAR (CLEAR); COLOR URINE YELLOW (YELLOW); GLUCOSE URINE NEGATIVE (NEGATIVE); KETONES URINE NEGATIVE (NEGATIVE); LEUKOCYTE ESTERASE URINE TRACE (NEGATIVE); NITRITE URINE NEGATIVE (NEGATIVE); OCCULT BLOOD URINE NEGATIVE (NEGATIVE); PH URINE 5.5 (4.5-8.0); PROTEIN URINE TRACE (NEGATIVE); SPECIFIC GRAVITY URINE 1.024 (1.005-1.030); UROBILINOGEN URINE 0.2 E.U./dL (0.2-1.0)
[2025-02-11 23:58] VITALS: BP 102/56; PULSE 87; RESP 20; TEMP 37.4
[2025-02-11 23:58] LABS: *AMPHETAMINES SCREEN URINE PRESUMPTIVE POSITIVE (NEGATIVE); *BARBITURATES SCREEN URINE NEGATIVE (NEGATIVE); *BENZODIAZEPINES SCREEN URINE NEGATIVE (NEGATIVE); *COCAINE SCREEN URINE NEGATIVE (NEGATIVE); METHADONE URINE SCREEN NEGATIVE (NEGATIVE)
[2025-02-11 23:59] LABS: CANNABINOID URINE SCREEN NEGATIVE (NEGATIVE); ECSTASY MDMA SCREEN URINE NEGATIVE (NEGATIVE); OPIATES URINE SCREEN PRESUMPTIVE POSITIVE (NEGATIVE); PHENCYCLIDINE URINE SCREEN NEGATIVE (NEGATIVE)
[2025-02-12] VITALS (16 sets, daily range): BP systolic 92–120; BP diastolic 42–77; PULSE 72–89; RESP 15–20; TEMP 35.1–37.4; O2SAT 95–100
[2025-02-12] MEDS ORDERED: IPRATROPIUM/ALBUTEROL 0.5-3(2.5)MG/3ML NEB NEB PRN (00:15)
[2025-02-12] MEDS ORDERED: CLONIDINE 0.1MG TABLET PO PRN (00:15)
[2025-02-12] MEDS ORDERED: NALOXONE HCL 0.4MG/ML VIAL IV PRN (00:15)
[2025-02-12] MEDS: MORPHINE SULFATE 2 MG/ML INJ (NOT FOR IM USE) IV PRN (01:11)
[2025-02-12 02:27] LABS: SQUAMOUS EPITHELIAL CELL URINE 1+ /lpf (RARE/1+)
[2025-02-12 02:28] LABS: BACTERIA URINE NONE SEEN; RBC URINE 0-2 /hpf (0-2); WBC URINE 0-2 /hpf (0-2)
[2025-02-12] MEDS: HYDROCODONE/ACETAMINOPHEN 5/325MG TABLET PO PRN (03:54)
[2025-02-12] MEDS: ONDANSETRON HCL 4MG/2ML INJ IV PRN (07:48)
[2025-02-12] MEDS: SODIUM CHLORIDE 0.9% 1,000 ML IV SCH (08:15)
[2025-02-12 08:30] LABS: HEMATOCRIT 20.5 % (36.0-48.0); HEMOGLOBIN 6.5 g/dL (12.0-16.0)
[2025-02-12] MEDS: PANTOPRAZOLE SODIUM 40 MG/VIAL IV SCH (08:59)
[2025-02-12] MEDS: QUETIAPINE FUMARATE 50MG TABLET PO SCH (08:59)
[2025-02-12] MEDS: SUCRALFATE 1G TABLET PO SCH (08:59)
[2025-02-12] MEDS: FOLIC ACID 1MG TABLET PO SCH (08:59)
[2025-02-12] MEDS: THIAMINE HCL 100MG TABLET PO SCH (08:59)
[2025-02-12] MEDS: HYDRALAZINE HCL 25MG TABLET PO SCH (09:00)
[2025-02-12] MEDS: LEVETIRACETAM 500MG/5ML CUP PO SCH (09:00)
[2025-02-12] MEDS: AMLODIPINE 10MG TABLET PO SCH (09:00)
[2025-02-12 19:55] LABS: HEMOGLOBIN 6.7 g/dL (12.0-16.0)
[2025-02-12 19:56] LABS: HEMATOCRIT 20.7 % (36.0-48.0)
[2025-02-12] MEDS: ZOLPIDEM TARTRATE 5MG TABLET PO PRN (22:41)
[2025-02-13] VITALS (10 sets, daily range): BP systolic 109–131; BP diastolic 57–77; PULSE 76–93; RESP 17–20; TEMP 36.3–38.7; O2SAT 97–100
[2025-02-13 07:54] LABS: BASOPHILS % 0.3 % (0.0-2.0); EOSINOPHILS % 1.3 % (0.0-5.0); HEMATOCRIT. 25.5 % (36.0-48.0); HEMOGLOBIN. 8.3 g/dL (12.0-16.0); MEAN CORPUSCULAR HEMOGLOBIN 26.2 pg (28.0-32.0); MEAN CORPUSCULAR HGB CONC 32.6 g/dL (31.0-37.0); MEAN CORPUSCULAR VOLUME 80.5 fL (81.0-99.0); MEAN PLATELET VOLUME 7.9 fl (7.4-10.4); MONOCYTES % 4.3 % (2.0-8.0); NEUTROPHILS % 81.1 % (40.0-76.0); PLATELET 335 x1000/uL (130-400); RED BLOOD CELL COUNT 3.17 mill/uL (4.2-5.4); RED CELL DISTRIBUTION WIDTH 17.5 % (11.6-14.6); WHITE BLOOD COUNT 7.7 x1000/uL (4.5-11.0)
[2025-02-13 07:59] LABS: CHLORIDE 107 mEq/L (98-107); POTASSIUM 4.3 mEq/L (3.5-5.1); SODIUM 141 mEq/L (136-145)
[2025-02-13 08:00] LABS: CARBON DIOXIDE 29 mEq/L (21-32)
[2025-02-13 08:01] LABS: CALCIUM 8.4 mg/dL (8.7-10.4)
[2025-02-13 08:05] LABS: CREATININE 0.5 mg/dL (0.6-1.0)
[2025-02-13 08:06] LABS: GLUCOSE 93 mg/dL (70-105); UREA NITROGEN BLOOD 10 mg/dL (9-23)
[2025-02-13] MEDS: ACETAMINOPHEN 325MG TABLET PO PRN (21:33)
[2025-02-14] VITALS: BP 110/62; PULSE 83; RESP 20; TEMP 37.4; O2SAT 100
[2025-02-14 04:00] VITALS: BP 110/67; PULSE 82; RESP 19; TEMP 36.6; O2SAT 100
[2025-02-14 06:36] LABS: CARBON DIOXIDE 28 mEq/L (21-32); CHLORIDE 107 mEq/L (98-107); SODIUM 141 mEq/L (136-145)
[2025-02-14 06:38] LABS: CALCIUM 7.8 mg/dL (8.7-10.4)
[2025-02-14 06:40] LABS: BASOPHILS % 0.3 % (0.0-2.0); DIFFERENTIAL COMMENT 0; HEMATOCRIT. 22.6 % (36.0-48.0); HEMOGLOBIN. 7.4 g/dL (12.0-16.0); LYMPHOCYTES % 13.1 % (20.0-50.0); MEAN CORPUSCULAR HEMOGLOBIN 25.8 pg (28.0-32.0); MEAN CORPUSCULAR HGB CONC 32.6 g/dL (31.0-37.0); MEAN PLATELET VOLUME 7.8 fl (7.4-10.4); MONOCYTES % 4.7 % (2.0-8.0); NEUTROPHILS % 80.9 % (40.0-76.0); PLATELET 334 x1000/uL (130-400); RED BLOOD CELL COUNT 2.86 mill/uL (4.2-5.4); RED CELL DISTRIBUTION WIDTH 18.1 % (11.6-14.6)
[2025-02-14 06:42] LABS: CREATININE 0.5 mg/dL (0.6-1.0); GLUCOSE 98 mg/dL (70-105); UREA NITROGEN BLOOD 8 mg/dL (9-23)
[2025-02-14 08:00] VITALS: BP 118/72; PULSE 83; RESP 16; TEMP 36.9; O2SAT 97
[2025-02-14 12:00] VITALS: BP 119/73; RESP 16; TEMP 36.8; O2SAT 97
[2025-02-14 16:12] VITALS: BP 119/74; PULSE 16; RESP 16; TEMP 36.6; O2SAT 98
[2025-02-14 20:00] VITALS: BP 108/53; PULSE 94; RESP 18; TEMP 38.6; O2SAT 97
[2025-02-15] VITALS: BP 111/53; PULSE 91; RESP 18; TEMP 37.6; O2SAT 97
[2025-02-15 04:00] VITALS: BP 101/55; PULSE 80; RESP 18; TEMP 36.8; O2SAT 98
[2025-02-15 06:52] LABS: CHLORIDE 109 mEq/L (98-107); POTASSIUM 4.2 mEq/L (3.5-5.1); SODIUM 143 mEq/L (136-145)
[2025-02-15 06:53] LABS: CALCIUM 8.6 mg/dL (8.7-10.4); CARBON DIOXIDE 28 mEq/L (21-32)
[2025-02-15 06:58] LABS: CREATININE 0.6 mg/dL (0.6-1.0); GLUCOSE 101 mg/dL (70-105); UREA NITROGEN BLOOD 10 mg/dL (9-23)
[2025-02-15 07:13] LABS: BASOPHILS % 0.4 % (0.0-2.0); DIFFERENTIAL COMMENT 0; EOSINOPHILS % 0.6 % (0.0-5.0); HEMATOCRIT. 23.3 % (36.0-48.0); HEMOGLOBIN. 7.6 g/dL (12.0-16.0); LYMPHOCYTES % 9.8 % (20.0-50.0); MEAN CORPUSCULAR HEMOGLOBIN 26.1 pg (28.0-32.0); MEAN CORPUSCULAR HGB CONC 32.6 g/dL (31.0-37.0); MEAN CORPUSCULAR VOLUME 79.9 fL (81.0-99.0); MEAN PLATELET VOLUME 8.1 fl (7.4-10.4); MONOCYTES % 5.6 % (2.0-8.0); NEUTROPHILS % 83.6 % (40.0-76.0); PLATELET 358 x1000/uL (130-400); RED BLOOD CELL COUNT 2.91 mill/uL (4.2-5.4); RED CELL DISTRIBUTION WIDTH 18.2 % (11.6-14.6); WHITE BLOOD COUNT 8.9 x1000/uL (4.5-11.0)
[2025-02-15 08:00] VITALS: BP 120/66; PULSE 84; RESP 19; TEMP 37.4; O2SAT 99
[2025-02-15 12:00] VITALS: BP 108/48; PULSE 84; RESP 19; TEMP 36.6; O2SAT 98
[2025-02-15 16:00] VITALS: BP 99/46; PULSE 74; PULSE 81; RESP 19; TEMP 36.8; O2SAT 98
[2025-02-15 20:00] VITALS: BP 104/51; PULSE 81; RESP 20; TEMP 36.2; O2SAT 100
[2025-02-16] VITALS: BP 112/57; PULSE 91; RESP 20; TEMP 36.6; O2SAT 99
[2025-02-16 04:00] VITALS: BP 125/84; PULSE 18; RESP 18; TEMP 36.4; O2SAT 99
[2025-02-16 08:00] VITALS: BP 115/73; PULSE 79; RESP 19; TEMP 36.7; O2SAT 100
[2025-02-16 12:00] VITALS: BP 93/52; PULSE 76; RESP 18; TEMP 36.6; O2SAT 100
[2025-02-16] MEDS ORDERED: LEVE1000 MT (13:00)
[2025-02-16] MEDS ORDERED: THIA100T72 PO (13:00)
[2025-02-16] MEDS ORDERED: SUCR1TAB PO (13:00)
[2025-02-16] MEDS ORDERED: QUET100T PO (13:00)
[2025-02-16] MEDS ORDERED: AMLO10TA80 MT (13:00)
[2025-02-16] MEDS ORDERED: HYDR-4001 MT (13:00)
[2025-02-16] MEDS ORDERED: FLUT1DIS3 INH (13:00)
[2025-02-16] MEDS ORDERED: ALBU18HF2 IH (13:00)
[2025-02-16] MEDS ORDERED: HYDR25TA78 MT (13:00)
[2025-02-16] MEDS ORDERED: PROT40 MT (13:00)
[2025-02-16 16:00] VITALS: BP 105/57; PULSE 89; RESP 18; TEMP 36.9; O2SAT 97
[2025-02-16 20:00] VITALS: BP 110/60; PULSE 79; RESP 17; TEMP 37; O2SAT 100
[2025-02-17] VITALS: BP 99/57; PULSE 106; RESP 20; TEMP 36.7; O2SAT 99
[2025-02-17] MEDS: HYDROCODONE/ACETAMINOPHEN 5/325MG TABLET PO PRN (03:26)
[2025-02-17 04:00] VITALS: BP 111/70; PULSE 76; RESP 20; TEMP 37; O2SAT 97
[2025-02-17 04:33] VITALS: RESP 20
[2025-02-17] MEDS: MORPHINE SULFATE 2 MG/ML INJ (NOT FOR IM USE) IV PRN (04:33)
[2025-02-17 08:06] VITALS: BP 111/70; PULSE 76; TEMP 98.6; O2SAT 97
== END 2025-02-17 10:32 | disposition home health service (06) | DRG 662 ==
LOC: ER 18:53 → 6WST 21:02 → EDBEDREQSVC 21:22 → EDBEDREQ 21:22 → EDBEDREQTM 21:22 → 8EST 02-15 17:36
PROVIDERS: ADMIT Internal Medicine; ATTEND Internal Medicine
PROC: 30233N1 Transfusion of Nonautologous Red Blood Cells into Peripheral Vein, Percutaneous Approach (ICD-10-PCS; principal; 2025-02-11)
DX: D57.00 Hb-SS disease with crisis, unspecified (principal); R56.9 Unspecified convulsions; E78.5 Hyperlipidemia, unspecified; I10 Essential (primary) hypertension; K29.70 Gastritis, unspecified, without bleeding; J45.909 Unspecified asthma, uncomplicated; F20.9 Schizophrenia, unspecified; F31.9 Bipolar disorder, unspecified; Z20.822 Contact with and (suspected) exposure to COVID-19; Z88.0 Allergy status to penicillin; Z59.00 Homelessness unspecified
CPT/HCPCS: 36415; 36430; 71045; 74176; 80048; 80076; 80305; 80320; 81003; 82962; 83605; 84703; 85014; 85018; 85025; 85044; 86850; 86900; 86920; 87426; 93880; 93970; 97161; 97166; 99285; J2270; J2405; J2470; J3490; J7030; P9016; G0480

== ENCOUNTER 2025-08-11 16:31 | Inpatient (IN) | payer MEDICAID ==
[~2025-08-11] VITALS: Ht 167.6 cm; Wt 58.1 kg
[~2025-08-11 16:31] MED LIST changes: -AMLO10TA80 MT; -ASCO-339 MT; -DOCU-138 MT; -FERR325T6 MT; -FOLI-43 PO; -HYDR-4001 MT; -HYDR25TA78 MT; -HYDR50TA39 PO; -IPRA3AMP9 NEB; +MAG-55 MT; -NICO-789 TD; +NIFE-32 MT; -ONDA4TAB50 MT; -P20 MT; -TOPUD PO
[2025-08-11 17:18] LABS: BASOPHILS % 0.4 % (0.0-2.0); EOSINOPHILS % 0.2 % (0.0-5.0); HEMATOCRIT. 30.8 % (36.0-48.0); HEMOGLOBIN. 9.4 g/dL (12.0-16.0); LYMPHOCYTES % 14.6 % (20.0-50.0); MEAN PLATELET VOLUME 8.3 fl (7.4-10.4); MONOCYTES % 7.2 % (2.0-8.0); NEUTROPHILS % 77.6 % (40.0-76.0); PLATELET 537 x1000/uL (130-400); RED BLOOD CELL COUNT 4.03 mill/uL (4.2-5.4); RED CELL DISTRIBUTION WIDTH 22.6 % (11.6-14.6)
[2025-08-11 17:24] LABS: ADD RBC MORPHOLOGY YES
[2025-08-11 17:30] LABS: CREATININE 0.7 mg/dL (0.6-1.0); UREA NITROGEN BLOOD 11 mg/dL (9-23)
[2025-08-11 17:31] LABS: TROPONIN I HIGH SENSITIVITY 4 ng/L (3.0-34)
[2025-08-11] MEDS: SODIUM CHLORIDE 0.9% 1,000 ML IV ONE (18:13)
[2025-08-11 18:20] LABS: HCG SCREEN NEGATIVE
[2025-08-11 18:59] LABS: PLATELET ESTIMATE INCREASED
[2025-08-11] MEDS ORDERED: AZITHROMYCIN 500MG/250ML 250 ML IV ONE (19:45)
[2025-08-11] MEDS: SODIUM CHLORIDE 0.9% (SEPSIS BOLUS) IV ONE (20:10)
[2025-08-11] MEDS: CEFTRIAXONE 1GM/50ML 50 ML IV ONE (20:18)
[2025-08-11] MEDS ORDERED: MORPHINE SULFATE 4 MG/ML INJ (FOR IV/IM USE) IV ONE (21:15)
[2025-08-11 21:36] LABS: INR 1.0
[2025-08-11 22:01] LABS: ASPARTATE AMINOTRANSFERASE 12 IU/L (<34); BILIRUBIN DIRECT < 0.1 mg/dL (<=3.0); BILIRUBIN TOTAL 0.2 mg/dL (0.1-1.0); PROTEIN TOTAL 6.7 g/dL (6.0-8.3)
[2025-08-11] MEDS: MORPHINE SULFATE 4 MG/ML INJ (FOR IV/IM USE) IV NR (23:42)
[2025-08-11] MEDS: AZITHROMYCIN 500MG/250ML 250 ML IV NR (23:43)
[2025-08-12 00:23] LABS: CLARITY URINE TURBID (CLEAR); COLOR URINE YELLOW (YELLOW); GLUCOSE URINE NEGATIVE (NEGATIVE); KETONES URINE NEGATIVE (NEGATIVE); LEUKOCYTE ESTERASE URINE NEGATIVE (NEGATIVE); NITRITE URINE NEGATIVE (NEGATIVE); OCCULT BLOOD URINE 2+ (NEGATIVE); PH URINE 7.5 (4.5-8.0); PROTEIN URINE 2+ (NEGATIVE); SPECIFIC GRAVITY URINE 1.015 (1.005-1.030); UROBILINOGEN URINE 0.2 E.U./dL (0.2-1.0)
[2025-08-12 01:12] LABS: *AMPHETAMINES SCREEN URINE PRESUMPTIVE POSITIVE (NEGATIVE); *BARBITURATES SCREEN URINE NEGATIVE (NEGATIVE); *BENZODIAZEPINES SCREEN URINE NEGATIVE (NEGATIVE); *COCAINE SCREEN URINE NEGATIVE (NEGATIVE); CANNABINOID URINE SCREEN NEGATIVE (NEGATIVE); ECSTASY MDMA SCREEN URINE NEGATIVE (NEGATIVE); METHADONE URINE SCREEN NEGATIVE (NEGATIVE); OPIATES URINE SCREEN NEGATIVE (NEGATIVE); PHENCYCLIDINE URINE SCREEN NEGATIVE (NEGATIVE)
[2025-08-12 04:55] VITALS: BP 154/91; PULSE 97; RESP 20; TEMP 37.1408
[2025-08-12 05:35] LABS: SQUAMOUS EPITHELIAL CELL URINE 1+ /lpf (RARE/1+)
[2025-08-12 05:36] LABS: RBC URINE 15-25 /hpf (0-2)
[2025-08-12 05:37] LABS: BACTERIA URINE TRACE
[2025-08-12 05:38] LABS: AMORPHOUS SEDIMENT URINE 1+ /lpf
[2025-08-12] MEDS: ACETAMINOPHEN 650MG/20.3ML UDC PO PRN (06:17)
[2025-08-12 08:00] VITALS: BP 145/90; PULSE 92; RESP 18; TEMP 36.3; O2SAT 99
[2025-08-12] MEDS: AMLODIPINE 10MG TABLET PO SCH (09:16)
[2025-08-12 12:00] VITALS: BP 128/81; PULSE 86; RESP 18; TEMP 36.4; O2SAT 99
[2025-08-12] MEDS ORDERED: NALOXONE HCL 0.4MG/ML VIAL IV PRN (12:45)
[2025-08-12] MEDS: ONDANSETRON HCL 4MG/2ML INJ IV PRN (12:55)
[2025-08-12] MEDS: MAGNESIUM 2 G PREMIX 50 ML IV ONE (12:55)
[2025-08-12] MEDS: HYDROCODONE/ACETAMINOPHEN 10/325MG TABLET PO PRN (12:58)
[2025-08-12 16:00] VITALS: BP 130/77; PULSE 83; RESP 18; TEMP 36.6; O2SAT 99
[2025-08-12] MEDS ORDERED: ONDANSETRON HCL 4MG/2ML INJ IV PRN (19:45)
[2025-08-12 20:00] VITALS: BP 133/70; PULSE 89; RESP 19; TEMP 36.4; O2SAT 100
[2025-08-12] MEDS ORDERED: MAGNESIUM/ALUMINUM HYDROXIDE/SIMETHICONE 30ML UDC PO PRN (20:00)
[2025-08-12] MEDS: CEFTRIAXONE 1GM/50ML 50 ML IV SCH (20:44)
[2025-08-12] MEDS: LEVETIRACETAM 500MG TABLET PO SCH (20:45)
[2025-08-12] MEDS: QUETIAPINE FUMARATE 50MG TABLET PO SCH (20:45)
[2025-08-12] MEDS: SUCRALFATE 1G TABLET PO SCH (20:45)
[2025-08-12] MEDS ORDERED: QUETIAPINE FUMARATE 100 MG PO SCH (21:00)
[2025-08-12] MEDS ORDERED: LEVETIRACETAM MT SCH (21:00)
[2025-08-12] MEDS ORDERED: NIFEDIPINE XL 60MG TAB PO SCH (21:00)
[2025-08-13] VITALS (7 sets, daily range): BP systolic 96–126; BP diastolic 52–78; PULSE 77–93; RESP 15–22; TEMP 36.1–37.2; O2SAT 95–100
[2025-08-13] MEDS: AZITHROMYCIN 500MG/250ML 250 ML IV SCH (01:32)
[2025-08-13] MEDS: IPRATROPIUM/ALBUTEROL 0.5-3(2.5)MG/3ML NEB HHN SCH (01:35)
[2025-08-13] MEDS: THIAMINE HCL 100MG TABLET PO SCH (09:06)
[2025-08-13 10:19] LABS: CREATININE 0.6 mg/dL (0.6-1.0); UREA NITROGEN BLOOD 10 mg/dL (9-23)
[2025-08-13 10:21] LABS: BASOPHILS % 0.4 % (0.0-2.0); EOSINOPHILS % 1.6 % (0.0-5.0); LYMPHOCYTES % 10.5 % (20.0-50.0); MEAN PLATELET VOLUME 8.1 fl (7.4-10.4); MONOCYTES % 6.1 % (2.0-8.0); NEUTROPHILS % 81.4 % (40.0-76.0); PLATELET 396 x1000/uL (130-400); RED BLOOD CELL COUNT 3.05 mill/uL (4.2-5.4); RED CELL DISTRIBUTION WIDTH 21.0 % (11.6-14.6)
[2025-08-13 10:36] LABS: HEMOGLOBIN. 7.2 g/dL (12.0-16.0)
[2025-08-13 10:38] LABS: HEMATOCRIT. 23.2 % (36.0-48.0)
[2025-08-13] MEDS: PANTOPRAZOLE SODIUM 40 MG/VIAL IV SCH (10:48)
[2025-08-14] VITALS (9 sets, daily range): BP systolic 96–173; BP diastolic 44–105; PULSE 65–107; RESP 16–20; TEMP 36.1–36.9; O2SAT 91–100
[2025-08-14 16:55] LABS: BASOPHILS % 0.2 % (0.0-2.0); EOSINOPHILS % 0.8 % (0.0-5.0); HEMATOCRIT. 24.8 % (36.0-48.0); HEMOGLOBIN. 7.5 g/dL (12.0-16.0); LYMPHOCYTES % 8.8 % (20.0-50.0); MEAN PLATELET VOLUME 8.4 fl (7.4-10.4); MONOCYTES % 11.1 % (2.0-8.0); NEUTROPHILS % 79.1 % (40.0-76.0); PLATELET 377 x1000/uL (130-400); RED BLOOD CELL COUNT 3.19 mill/uL (4.2-5.4); RED CELL DISTRIBUTION WIDTH 20.7 % (11.6-14.6)
[2025-08-14 17:09] LABS: CREATININE 0.5 mg/dL (0.6-1.0); UREA NITROGEN BLOOD 7 mg/dL (9-23)
[2025-08-15] VITALS (8 sets, daily range): BP systolic 106–137; BP diastolic 59–79; PULSE 77–112; RESP 18–19; TEMP 36.4–36.7; O2SAT 91–100
[2025-08-15] MEDS ORDERED: LEVO750T68 MT (10:21)
[2025-08-15 13:28] LABS: BASOPHILS % 0.2 % (0.0-2.0); EOSINOPHILS % 0.5 % (0.0-5.0); HEMATOCRIT. 23.0 % (36.0-48.0); LYMPHOCYTES % 10.1 % (20.0-50.0); MONOCYTES % 7.1 % (2.0-8.0); NEUTROPHILS % 82.1 % (40.0-76.0); RED BLOOD CELL COUNT 2.94 mill/uL (4.2-5.4); RED CELL DISTRIBUTION WIDTH 20.3 % (11.6-14.6)
[2025-08-15 13:40] LABS: HEMOGLOBIN. 6.9 g/dL (12.0-16.0)
[2025-08-15 14:04] LABS: PLATELET 403 x1000/uL (130-400)
[2025-08-15 17:11] LABS: CREATININE 0.6 mg/dL (0.6-1.0); UREA NITROGEN BLOOD 9 mg/dL (9-23)
[2025-08-16] VITALS (16 sets, daily range): BP systolic 109–136; BP diastolic 49–83; PULSE 81–110; RESP 15–22; TEMP 36.28068–36.6; O2SAT 95–100
[2025-08-17] VITALS (10 sets, daily range): BP systolic 109–150; BP diastolic 63–134; PULSE 72–98; RESP 15–20; TEMP 36–36.7; O2SAT 97–100
[2025-08-18] VITALS: BP 149/89; PULSE 79; RESP 19; TEMP 36.4; O2SAT 97
[2025-08-18 04:00] VITALS: BP 126/76; PULSE 92; RESP 18; TEMP 35.9; O2SAT 98
[2025-08-18] MEDS: ACETAMINOPHEN 325MG TABLET PO PRN (04:28)
[2025-08-18 08:00] VITALS: BP 151/96; PULSE 92; RESP 18; TEMP 35.7; O2SAT 96
[2025-08-18 12:00] VITALS: BP 125/84; PULSE 101; RESP 16; TEMP 36.1; O2SAT 97
[2025-08-18 16:00] VITALS: BP 131/80; PULSE 91; RESP 16; TEMP 36; O2SAT 97
[2025-08-18 20:00] VITALS: BP 118/78; PULSE 95; RESP 18; TEMP 36.6; O2SAT 100
[2025-08-18] MEDS ORDERED: PANTOPRAZOLE 40MG DR TABLET PO SCH (21:45)
[2025-08-19] VITALS: BP 115/75; PULSE 111; RESP 19; TEMP 36.6; O2SAT 100
[2025-08-19 00:46] LABS: BASOPHILS % 0.4 % (0.0-2.0); EOSINOPHILS % 0.6 % (0.0-5.0); HEMATOCRIT. 30.5 % (36.0-48.0); HEMOGLOBIN. 9.3 g/dL (12.0-16.0); LYMPHOCYTES % 16.4 % (20.0-50.0); MEAN PLATELET VOLUME 7.2 fl (7.4-10.4); MONOCYTES % 5.6 % (2.0-8.0); NEUTROPHILS % 77.0 % (40.0-76.0); PLATELET 527 x1000/uL (130-400); RED BLOOD CELL COUNT 3.84 mill/uL (4.2-5.4); RED CELL DISTRIBUTION WIDTH 20.3 % (11.6-14.6)
[2025-08-19 04:00] VITALS: BP 121/75; PULSE 98; RESP 17; TEMP 36.6; O2SAT 100
[2025-08-19 08:00] VITALS: BP 120/78; PULSE 96; RESP 16; TEMP 35.7; O2SAT 99
[2025-08-19 12:00] VITALS: BP 124/76; PULSE 96; RESP 16; TEMP 36.2; O2SAT 97
[2025-08-19 16:00] VITALS: BP 125/75; PULSE 97; RESP 16; TEMP 36.4; O2SAT 98
[2025-08-19 20:00] VITALS: BP 122/75; PULSE 80; RESP 19; TEMP 36.6; O2SAT 99
[2025-08-20] VITALS: BP 111/63; PULSE 90; RESP 19; TEMP 36.4; O2SAT 96
[2025-08-20 04:00] VITALS: BP 115/73; PULSE 84; RESP 18; TEMP 36.3; O2SAT 99
[2025-08-20 08:00] VITALS: BP 118/72; PULSE 84; RESP 16; TEMP 35.8; O2SAT 99
[2025-08-20 12:00] VITALS: BP 114/70; PULSE 89; RESP 18; TEMP 36.2; O2SAT 100
[2025-08-20 16:00] VITALS: BP 132/83; PULSE 90; RESP 18; TEMP 36.3; O2SAT 100
[2025-08-20 20:00] VITALS: BP 122/78; PULSE 90; RESP 18; TEMP 36.8; O2SAT 99
[2025-08-21] VITALS: BP 108/61; PULSE 92; RESP 19; TEMP 36.2; O2SAT 99
[2025-08-21 04:00] VITALS: BP 119/66; PULSE 89; RESP 18; TEMP 36.6; O2SAT 84
[2025-08-21 07:13] LABS: BASOPHILS % 0.4 % (0.0-2.0); EOSINOPHILS % 1.0 % (0.0-5.0); HEMATOCRIT. 30.5 % (36.0-48.0); HEMOGLOBIN. 9.2 g/dL (12.0-16.0); LYMPHOCYTES % 21.9 % (20.0-50.0); MEAN PLATELET VOLUME 7.2 fl (7.4-10.4); MONOCYTES % 7.1 % (2.0-8.0); NEUTROPHILS % 69.6 % (40.0-76.0); PLATELET 375 x1000/uL (130-400); RED BLOOD CELL COUNT 3.80 mill/uL (4.2-5.4); RED CELL DISTRIBUTION WIDTH 20.4 % (11.6-14.6)
[2025-08-21 07:27] LABS: CREATININE 0.6 mg/dL (0.6-1.0); UREA NITROGEN BLOOD 12 mg/dL (9-23)
[2025-08-21 08:00] VITALS: BP 121/62; PULSE 98; RESP 19; TEMP 36.4; O2SAT 98
[2025-08-21 12:00] VITALS: BP 119/60; PULSE 90; RESP 18; TEMP 36.6; O2SAT 98
[2025-08-21 16:00] VITALS: BP 119/67; PULSE 95; RESP 19; TEMP 36.4; O2SAT 98
[2025-08-21 20:00] VITALS: BP 108/61; PULSE 87; RESP 20; TEMP 36.9; O2SAT 99
[2025-08-22] VITALS (7 sets, daily range): BP systolic 11–125; BP diastolic 57–80; PULSE 80–100; RESP 18–20; TEMP 36.1–36.7; O2SAT 96–100
[2025-08-22 06:36] LABS: BASOPHILS % 0.4 % (0.0-2.0); EOSINOPHILS % 1.0 % (0.0-5.0); HEMATOCRIT. 31.5 % (36.0-48.0); HEMOGLOBIN. 9.5 g/dL (12.0-16.0); LYMPHOCYTES % 20.1 % (20.0-50.0); MEAN PLATELET VOLUME 7.3 fl (7.4-10.4); MONOCYTES % 6.3 % (2.0-8.0); NEUTROPHILS % 72.2 % (40.0-76.0); PLATELET 337 x1000/uL (130-400); RED BLOOD CELL COUNT 3.91 mill/uL (4.2-5.4); RED CELL DISTRIBUTION WIDTH 20.2 % (11.6-14.6)
[2025-08-22 07:09] LABS: CREATININE 0.5 mg/dL (0.6-1.0); UREA NITROGEN BLOOD 12 mg/dL (9-23)
[2025-08-22] MEDS: IPRATROPIUM/ALBUTEROL 0.5-3(2.5)MG/3ML NEB HHN SCH (21:34)
[2025-08-23] VITALS (11 sets, daily range): BP systolic 100–119; BP diastolic 67–77; PULSE 75–103; RESP 17–29; TEMP 36.7–37.1; O2SAT 87–100
[2025-08-23 15:25] LABS: BG BASE EXCESS 24.8 mmol/L (-2.0-3.0); BG CARBOXYHEMOGLOBIN 0.3 % (0.5-1.5); BG DEOXYHEMOGLOBIN 0.4 % (0.0-5.0); BG FLOW(L/min) 2.00 L/min; BG FRACTION INSPIRED OXYGEN 28; BG HCO3 ACT 56.9 mmol/L (21.0-28.0); BG METHEMOGLOBIN 0.1 % (0.5-1.5); BG OXYGEN SATURATION 99.6 % (94.0-98.0); BG OXYHEMOGLOBIN 99.2 % (94.0-98.0); BG PCO2 130.5 mmHg (32.0-45.0); BG PH 7.257 (7.350-7.450); BG PO2 221.8 mmHg (83.0-108.0); BG SAMPLE SITE RIGHT BRACHIAL; BG TOTAL HEMOGLOBIN 10.1 g/dL (12.0-16.0); BG VENT MODE NASAL CANNULA
[2025-08-23] MEDS: BUDESONIDE 0.5MG/2ML NEB HHN SCH (19:38)
[2025-08-23] MEDS ORDERED: NALOXONE HCL 0.4MG/ML VIAL IV PRN (21:15)
[2025-08-23] MEDS: HYDROCODONE/ACETAMINOPHEN 10/325MG TABLET PO PRN (21:30)
[2025-08-23 21:35] LABS: BG BASE EXCESS 22.0 mmol/L (-2.0-3.0); BG CARBOXYHEMOGLOBIN 0.8 % (0.5-1.5); BG DEOXYHEMOGLOBIN 2.9 % (0.0-5.0); BG FLOW(L/min) 4.00 L/min; BG HCO3 ACT 49.8 mmol/L (21.0-28.0); BG METHEMOGLOBIN 0.1 % (0.5-1.5); BG OXYGEN SATURATION 97.1 % (94.0-98.0); BG OXYHEMOGLOBIN 96.2 % (94.0-98.0); BG PCO2 76.8 mmHg (32.0-45.0); BG PH 7.430 (7.350-7.450); BG PO2 86.1 mmHg (83.0-108.0); BG SAMPLE SITE RIGHT RADIAL; BG TOTAL HEMOGLOBIN 10.2 g/dL (12.0-16.0); BG VENT MODE NASAL CANNULA
[2025-08-24] VITALS (16 sets, daily range): BP systolic 97–125; BP diastolic 69–88; PULSE 76–115; RESP 18–29; TEMP 36.4–37.6; O2SAT 97–100
[2025-08-24 02:18] LABS: TROPONIN I HIGH SENSITIVITY < 4 ng/L (3.0-34)
[2025-08-24] MEDS: DOCUSATE SODIUM 250MG CAPSULE PO PRN (08:34)
[2025-08-24 09:43] LABS: BG BASE EXCESS 14.6 mmol/L (-2.0-3.0); BG CARBOXYHEMOGLOBIN 0.7 % (0.5-1.5); BG DEOXYHEMOGLOBIN 1.7 % (0.0-5.0); BG FLOW(L/min) 2.00 L/min; BG FRACTION INSPIRED OXYGEN 28; BG HCO3 ACT 42.1 mmol/L (21.0-28.0); BG METHEMOGLOBIN 0.1 % (0.5-1.5); BG OXYGEN SATURATION 98.3 % (94.0-98.0); BG OXYHEMOGLOBIN 97.5 % (94.0-98.0); BG PCO2 71.3 mmHg (32.0-45.0); BG PH 7.389 (7.350-7.450); BG PO2 111.6 mmHg (83.0-108.0); BG SAMPLE SITE RIGHT RADIAL; BG TOTAL HEMOGLOBIN 10.1 g/dL (12.0-16.0); BG VENT MODE NASAL CANNULA
[2025-08-25] VITALS (17 sets, daily range): BP systolic 104–130; BP diastolic 55–78; PULSE 75–105; RESP 17–24; TEMP 36.7–37; O2SAT 96–100
[2025-08-26] VITALS (15 sets, daily range): BP systolic 104–118; BP diastolic 54–78; PULSE 77–95; RESP 15–23; TEMP 36.4–36.9; O2SAT 97–100
[2025-08-26] MEDS: GUAIFENESIN 600MG ER TABLET PO SCH (21:57)
[2025-08-27] VITALS (19 sets, daily range): BP systolic 99–150; BP diastolic 59–89; PULSE 78–99; RESP 16–30; TEMP 36.3–36.8; O2SAT 98–100
[2025-08-27 19:11] LABS: BASOPHILS % 0.3 % (0.0-2.0); EOSINOPHILS % 0.8 % (0.0-5.0); HEMATOCRIT. 26.5 % (36.0-48.0); HEMOGLOBIN. 8.0 g/dL (12.0-16.0); LYMPHOCYTES % 27.9 % (20.0-50.0); MEAN PLATELET VOLUME 8.9 fl (7.4-10.4); MONOCYTES % 8.2 % (2.0-8.0); NEUTROPHILS % 62.8 % (40.0-76.0); PLATELET 212 x1000/uL (130-400); RED BLOOD CELL COUNT 3.29 mill/uL (4.2-5.4); RED CELL DISTRIBUTION WIDTH 19.8 % (11.6-14.6)
[2025-08-27 19:28] LABS: CREATININE 0.4 mg/dL (0.6-1.0); UREA NITROGEN BLOOD 18 mg/dL (9-23)
[2025-08-28] VITALS (18 sets, daily range): BP systolic 90–120; BP diastolic 46–91; PULSE 75–98; RESP 18–30; TEMP 36.4–36.8; O2SAT 100
[2025-08-28] MEDS: IPRATROPIUM/ALBUTEROL 0.5-3(2.5)MG/3ML NEB HHN PRN (08:32)
[2025-08-28] MEDS: NICOTINE 7MG PATCH TD SCH (12:38)
[2025-08-28 13:54] LABS: CREATININE 0.5 mg/dL (0.6-1.0); UREA NITROGEN BLOOD 19 mg/dL (9-23)
[2025-08-28] MEDS: BUDESONIDE 0.5MG/2ML NEB HHN SCH (20:00)
[2025-08-28] MEDS: IPRATROPIUM/ALBUTEROL 0.5-3(2.5)MG/3ML NEB HHN SCH (20:00)
[2025-08-29] VITALS (12 sets, daily range): BP systolic 95–125; BP diastolic 49–73; PULSE 80–99; RESP 17–28; TEMP 36.7–37.2; O2SAT 95–100
[2025-08-29 12:17] LABS: BASOPHILS % 0.4 % (0.0-2.0); EOSINOPHILS % 0.8 % (0.0-5.0); HEMATOCRIT. 25.1 % (36.0-48.0); HEMOGLOBIN. 7.5 g/dL (12.0-16.0); LYMPHOCYTES % 28.8 % (20.0-50.0); MEAN PLATELET VOLUME 8.4 fl (7.4-10.4); MONOCYTES % 6.6 % (2.0-8.0); NEUTROPHILS % 63.4 % (40.0-76.0); PLATELET 241 x1000/uL (130-400); RED BLOOD CELL COUNT 3.12 mill/uL (4.2-5.4); RED CELL DISTRIBUTION WIDTH 19.6 % (11.6-14.6)
[2025-08-29 12:29] LABS: CREATININE 0.4 mg/dL (0.6-1.0); UREA NITROGEN BLOOD 16 mg/dL (9-23)
== END 2025-08-29 17:03 | disposition home or self-care (01) | DRG 720 ==
LOC: ER 16:31 → 6WST 08-12 01:52 → EDBEDREQDT 08-12 02:02 → EDBEDREQTM 08-12 02:02 → EDBEDREQ 08-12 02:02 → ENRESERV 08-12 04:03 → 4WST 08-19 10:55 → MICUSO 08-22 08:21 → 4WST 08-22 08:25 → 5EST 08-23 17:05
PROVIDERS: ADMIT Internal Medicine; ATTEND Internal Medicine
PROC: 30233N1 Transfusion of Nonautologous Red Blood Cells into Peripheral Vein, Percutaneous Approach (ICD-10-PCS; principal; 2025-08-16)
PROC: 5A09357 Assistance with Respiratory Ventilation, Less than 24 Consecutive Hours, Continuous Positive Airway Pressure (ICD-10-PCS; 2025-08-24)
PROC: 5A09357 Assistance with Respiratory Ventilation, Less than 24 Consecutive Hours, Continuous Positive Airway Pressure (ICD-10-PCS; 2025-08-25)
PROC: 5A09357 Assistance with Respiratory Ventilation, Less than 24 Consecutive Hours, Continuous Positive Airway Pressure (ICD-10-PCS; 2025-08-26)
PROC: 5A09357 Assistance with Respiratory Ventilation, Less than 24 Consecutive Hours, Continuous Positive Airway Pressure (ICD-10-PCS; 2025-08-27)
PROC: 5A09357 Assistance with Respiratory Ventilation, Less than 24 Consecutive Hours, Continuous Positive Airway Pressure (ICD-10-PCS; 2025-08-28)
DX: A41.9 Sepsis, unspecified organism (principal); J96.22 Acute and chronic respiratory failure with hypercapnia; J96.21 Acute and chronic respiratory failure with hypoxia; L89.153 Pressure ulcer of sacral region, stage 3; D50.9 Iron deficiency anemia, unspecified; F15.10 Other stimulant abuse, uncomplicated; J18.9 Pneumonia, unspecified organism; J44.0 Chronic obstructive pulmonary disease with (acute) lower respiratory infection; R65.20 Severe sepsis without septic shock; I10 Essential (primary) hypertension; J44.1 Chronic obstructive pulmonary disease with (acute) exacerbation; J45.901 Unspecified asthma with (acute) exacerbation; F17.210 Nicotine dependence, cigarettes, uncomplicated; L90.5 Scar conditions and fibrosis of skin; T43.655A Adverse effect of methamphetamines, initial encounter; Z87.11 Personal history of peptic ulcer disease; Z88.0 Allergy status to penicillin; Z79.899 Other long term (current) drug therapy; Z88.8 Allergy status to other drugs, medicaments and biological substances; Z71.6 Tobacco abuse counseling; Z76.5 Malingerer [conscious simulation]; Y92.89 Other specified places as the place of occurrence of the external cause
CPT/HCPCS: 36415; 36600; 71045; 80048; 80076; 80305; 80320; 81003; 82375; 82805; 83605; 83735; 83880; 84145; 84484; 84703; 85014; 85018; 85025; 85049; 85384; 86850; 86900; 86920; 93005; 93970; 94070; 94640; 94660; 94664; 94760; 96361; 96365; 96375; 97110; 97116; 97162; 97164; 97166; 97168; 97530; 98960; 99291; A4606; J0456; J0696; J2270; J2405; J2470; J3475; J7030; J7626; P9016; G0480

== ENCOUNTER 2025-09-17 13:33 | Inpatient (IN) ==
[~2025-09-17] VITALS: Ht 180.3 cm; Wt 54.9 kg
[~2025-09-17 13:33] MED LIST changes: +P20 MT
[2025-09-17] MEDS: SODIUM CHLORIDE 0.9% 1,000 ML IV ONE (14:00)
[2025-09-17] MEDS: METHYLPREDNISOLONE SOD SUCC 125MG/2ML (ACT-O-VIAL) IV ONE (14:00)
[2025-09-17] MEDS: IPRATROPIUM BROMIDE (0.02%) 0.5MG/2.5ML NEB HHN ONE (14:09)
[2025-09-17 14:11] VITALS: PULSE 100; RESP 28; O2SAT 96
[2025-09-17] MEDS: ALBUTEROL (0.083%) 2.5MG/3ML NEB HHN ONE (14:11)
[2025-09-17 14:12] LABS: BG BASE EXCESS 10.4 mmol/L (-2.0-3.0); BG CARBOXYHEMOGLOBIN 1.5 % (0.5-1.5); BG DEOXYHEMOGLOBIN 3.3 % (0.0-5.0); BG FRACTION INSPIRED OXYGEN 21; BG HCO3 ACT 36.3 mmol/L (21.0-28.0); BG METHEMOGLOBIN 0.2 % (0.5-1.5); BG OXYGEN SATURATION 96.6 % (94.0-98.0); BG OXYHEMOGLOBIN 95.0 % (94.0-98.0); BG PCO2 54.1 mmHg (32.0-45.0); BG PH 7.444 (7.350-7.450); BG PO2 84.2 mmHg (83.0-108.0); BG SAMPLE SITE LEFT RADIAL; BG TOTAL HEMOGLOBIN 12.2 g/dL (12.0-16.0); BG VENT MODE ROOM AIR
[2025-09-17 14:17] LABS: BASOPHILS % 1.0 % (0.0-2.0); EOSINOPHILS % 0.5 % (0.0-5.0); HEMATOCRIT. 37.7 % (36.0-48.0); HEMOGLOBIN. 11.5 g/dL (12.0-16.0); LYMPHOCYTES % 25.9 % (20.0-50.0); MEAN PLATELET VOLUME 8.8 fl (7.4-10.4); MONOCYTES % 5.1 % (2.0-8.0); NEUTROPHILS % 67.5 % (40.0-76.0); PLATELET 233 x1000/uL (130-400); RED BLOOD CELL COUNT 4.68 mill/uL (4.2-5.4); RED CELL DISTRIBUTION WIDTH 19.2 % (11.6-14.6)
[2025-09-17 14:25] LABS: TROPONIN I HIGH SENSITIVITY 6 ng/L (3.0-34)
[2025-09-17 14:26] LABS: CREATININE 0.8 mg/dL (0.6-1.0)
[2025-09-17 14:27] LABS: ETHANOL BLOOD < 10 mg/dL (<10); PROTEIN TOTAL 7.1 g/dL (6.0-8.3); UREA NITROGEN BLOOD 8 mg/dL (9-23)
[2025-09-17 14:28] LABS: ASPARTATE AMINOTRANSFERASE 23 IU/L (<34); BILIRUBIN DIRECT < 0.1 mg/dL (<=3.0)
[2025-09-17 14:29] LABS: BILIRUBIN TOTAL 0.2 mg/dL (0.1-1.0)
[2025-09-17 14:41] LABS: HCG SCREEN NEGATIVE
[2025-09-17 18:35] VITALS: BP 155/100; PULSE 55; RESP 18; TEMP 36.6; O2SAT 97
[2025-09-17 20:00] VITALS: BP_SYST 140; BP_SYST 142; BP_DIAS 81; BP_DIAS 87; PULSE 112; PULSE 51; RESP 20; TEMP 36.8; TEMP 37.3632; O2SAT 95
[2025-09-18] VITALS (11 sets, daily range): BP systolic 100–158; BP diastolic 57–98; PULSE 66–126; RESP 16–20; TEMP 36.6–37.3; O2SAT 97–100
[2025-09-18] MEDS ORDERED: GUAIFENESIN 200MG/10ML SUGAR FREE UDC PO PRN
[2025-09-18] MEDS ORDERED: MAGNESIUM/ALUMINUM HYDROXIDE/SIMETHICONE 30ML UDC PO PRN
[2025-09-18] MEDS: HYDROCODONE/ACETAMINOPHEN 10/325MG TABLET PO PRN (01:05)
[2025-09-18] MEDS: SUCRALFATE 1G TABLET PO SCH (06:13)
[2025-09-18] MEDS: PANTOPRAZOLE 40MG DR TABLET PO SCH (06:13)
[2025-09-18] MEDS: LEVETIRACETAM 500MG TABLET PO SCH (08:45)
[2025-09-18] MEDS: QUETIAPINE FUMARATE 50MG TABLET PO SCH (08:45)
[2025-09-18] MEDS: PREDNISONE 20MG TABLET PO SCH (08:45)
[2025-09-18] MEDS: NIFEDIPINE XL 60MG TAB PO SCH (08:46)
[2025-09-18] MEDS: ENOXAPARIN 40MG/0.4ML SYR SUBCUT SCH (08:47)
[2025-09-18] MEDS: IPRATROPIUM/ALBUTEROL 0.5-3(2.5)MG/3ML NEB HHN SCH (09:07)
[2025-09-18] MEDS: BUDESONIDE 0.5MG/2ML NEB HHN SCH (09:07)
[2025-09-19] VITALS (9 sets, daily range): BP systolic 100–137; BP diastolic 61–74; PULSE 94–119; RESP 18–20; TEMP 36.4–37.1; O2SAT 96–100
[2025-09-19 07:42] LABS: *AMPHETAMINES SCREEN URINE PRESUMPTIVE POSITIVE (NEGATIVE); *BARBITURATES SCREEN URINE NEGATIVE (NEGATIVE); *BENZODIAZEPINES SCREEN URINE NEGATIVE (NEGATIVE); *COCAINE SCREEN URINE NEGATIVE (NEGATIVE); CANNABINOID URINE SCREEN NEGATIVE (NEGATIVE); ECSTASY MDMA SCREEN URINE CONF.TEST INDICATED (NEGATIVE); METHADONE URINE SCREEN NEGATIVE (NEGATIVE); OPIATES URINE SCREEN PRESUMPTIVE POSITIVE (NEGATIVE); PHENCYCLIDINE URINE SCREEN NEGATIVE (NEGATIVE)
[2025-09-19 17:54] LABS: HEMATOCRIT. 28.9 % (36.0-48.0); HEMOGLOBIN. 8.6 g/dL (12.0-16.0); MEAN PLATELET VOLUME 9.1 fl (7.4-10.4); PLATELET 117 x1000/uL (130-400); RED BLOOD CELL COUNT 3.58 mill/uL (4.2-5.4); RED CELL DISTRIBUTION WIDTH 18.8 % (11.6-14.6)
[2025-09-19 18:08] LABS: CREATININE 0.8 mg/dL (0.6-1.0); UREA NITROGEN BLOOD 19 mg/dL (9-23)
[2025-09-20 16:21] LABS: LYMPHOCYTES % MANUAL 2.0 % (20.0-60.0); MONOCYTES % MANUAL 3.0 % (2.0-8.0); NEUTROPHILS % MANUAL 95.0 % (45.0-75.0)
[2025-09-20 16:22] LABS: PLATELET ESTIMATE NORMAL
== END 2025-09-19 17:52 | disposition short-term general hospital (02) | DRG 133 ==
LOC: ER 13:43 → 8WST 14:57 → EDBEDREQTM 14:59 → EDBEDREQ 14:59 → ENRESERV 17:50
PROVIDERS: ADMIT Internal Medicine; ATTEND Internal Medicine
DX: J96.01 Acute respiratory failure with hypoxia (principal); L89.153 Pressure ulcer of sacral region, stage 3; R62.7 Adult failure to thrive; D57.1 Sickle-cell disease without crisis; J45.901 Unspecified asthma with (acute) exacerbation; I10 Essential (primary) hypertension; F14.10 Cocaine abuse, uncomplicated; J44.1 Chronic obstructive pulmonary disease with (acute) exacerbation; Z59.00 Homelessness unspecified; F15.10 Other stimulant abuse, uncomplicated; F16.10 Hallucinogen abuse, uncomplicated; L81.9 Disorder of pigmentation, unspecified; F17.210 Nicotine dependence, cigarettes, uncomplicated; Z79.899 Other long term (current) drug therapy; Z87.11 Personal history of peptic ulcer disease; Z88.0 Allergy status to penicillin; Z88.8 Allergy status to other drugs, medicaments and biological substances; Z68.1 Body mass index [BMI] 19.9 or less, adult
CPT/HCPCS: 36415; 36600; 71045; 80048; 80076; 80305; 80320; 82375; 82805; 83880; 84484; 84703; 85025; 93005; 94070; 94640; 94664; 96361; 96374; 99291; A4606; A4615; J1650; J2919; J7030; J7512; J7626; G0480